=== PATIENT | male | born 1930 | race Caucasian/White ===

== ENCOUNTER 2016-12-25 11:18 | Emergency (ER) | payer MEDICARE, BC ==
[~2016-12-25] VITALS: Ht 172.7 cm; Wt 93.0 kg
[~2016-12-25 11:18] MED LIST: ACET325T53 PO; ALPR0.255 PO; ASCO500T9 PO; ASPI-991 PO; FINA5TAB4 PO; GABA-534 PO; LEVO750T21 PO; LEVO75TA PO; Lactose-Free Food PO; MULT-24 PO; SIMV40TA2 PO
[2016-12-25] MEDS ORDERED: IV NS 0.9% 500 ML IV ONE ×2 (11:28→12:26)
[2016-12-25] MEDS ORDERED: IV NS 0.9% 500 ML BAG IV ONE (11:30)
[2016-12-25 11:47] LABS: BASOPHILS # (AUTO) 0.6 /CMM (0.0-0.2); BASOPHILS % (AUTO) 4.9 % (0.0-2.0); DIFF TOTAL % 100 %; EOSINOPHILS # (AUTO) 0.1 /CMM (0.0-0.7); EOSINOPHILS % (AUTO) 0.8 % (0.0-6.0); HEMATOCRIT 44 % (39-51); HEMOGLOBIN 14.3 g/dL (13.5-17.5); LYMPHOCYTES # (AUTO) 1.3 /CMM (0.8-4.8); LYMPHOCYTES % (AUTO) 10.3 % (20.0-44.0); MEAN CORPUSCULAR HEMOGLOBIN 30 PG (26.0-33.0); MEAN CORPUSCULAR HGB CONC 33 g/dl (31.0-36.0); MEAN CORPUSCULAR VOLUME 91 fL (80-96); MONOCYTES # (AUTO) 1.2 /CMM (0.1-1.30); MONOCYTES % (AUTO) 9.8 % (2.0-12.0); NEUTROPHILS % (AUTO) 74.2 % (43.0-81.0); PLATELET COUNT (AUTO) 319 /CMM (150-450); RED BLOOD CELL COUNT(AUTO) 4.79 MIL/uL (4.5-6.0); WHITE BLOOD COUNT (AUTO) 12.2 K/uL (4.3-11.0)
[2016-12-25 11:58] LABS: ANION GAP 14 (5-14); CALCIUM, SERUM 8.8 mg/dL (8.5-10.1); CARBON DIOXIDE 24 mmol/L (21-32); CHLORIDE 103 mmol/L (98-107); CREATININE 1.3 mg/dL (0.6-1.3); GLUCOSE 103 mg/dL (74-106); POTASSIUM 4.1 mmol/L (3.5-5.1); SODIUM SERUM 137 mmol/L (136-145); UREA NITROGEN, BLOOD 23 mg/dL (7-18)
[2016-12-25 12:02] LABS: INR 1.04 (0.87-1.13); PROTHROMBIN TIME 10.9 SECS (9.5-12.7)
[2016-12-25 12:04] LABS: ALANINE AMINOTRANSFERASE 42 U/L (12-78); ALBUMIN 3.1 g/dL (3.4-5.0); ASPARTATE AMINOTRANSFERASE 46 U/L (15-37); BILIRUBIN,DIRECT 0.1 mg/dL (0.0-0.2); BILIRUBIN,TOTAL 0.4 mg/dL (0.2-1.0); TOTAL PROTEIN, SERUM 7.1 g/dL (6.4-8.2)
[2016-12-25 12:05] LABS: INDIRECT BILIRUBIN 0.3 mg/dL (0.0-1.1)
[2016-12-25 12:06] LABS: TROPONIN I < 0.017 ng/mL (0.00-0.056)
[2016-12-25 12:15] LABS: KETONES,URINE Trace (NEGATIVE); LEUKOCYTE ESTERASE ,URINE Large (NEGATIVE); PH,URINE 6.5 (5.0-8.0)
[2016-12-25 12:19] LABS: ADD UA MICROSCOPIC YES
[2016-12-25] MEDS ORDERED: MULT-659 PO (12:20)
[2016-12-25] MEDS ORDERED: RISP0.253 PO ×2 (12:20)
[2016-12-25] MEDS ORDERED: PANT20TA3 PO (12:20)
[2016-12-25] MEDS ORDERED: OXCA300T4 PO (12:20)
[2016-12-25] MEDS ORDERED: DOCU50LI PO (12:20)
[2016-12-25] MEDS ORDERED: NA P133E RC (12:20)
[2016-12-25] MEDS ORDERED: SIMV20TA6 PO (12:20)
[2016-12-25] MEDS ORDERED: AMIN30LI4 PO (12:20)
[2016-12-25] MEDS ORDERED: ONDA4TAB5 PO (12:20)
[2016-12-25] MEDS ORDERED: MAGN400O6 PO (12:20)
[2016-12-25] MEDS ORDERED: AMLO2.5T2 PO (12:20)
[2016-12-25] MEDS ORDERED: METO5TAB87 PO (12:20)
[2016-12-25 12:25] LABS: LACTIC ACID 2.6 mmol/L (0.4-2.0)
[2016-12-25] MEDS ORDERED: IV NS 0.9% 2,000 ML ONE (12:26)
[2016-12-25] MEDS ORDERED: IV SET PRIMARY 1 EA INFUS.SET MC ONE (12:26)
[2016-12-25 12:27] LABS: ADD URINE CULTURE YES; WBC,URINE 81-100 /HPF (0-3)
[2016-12-25] MEDS ORDERED: IV NS 0.9% 1,000 ML BAG IV ONE (12:30)
[2016-12-25 12:45] LABS: *LACTIC ACID REFLEX FLAG YES
[2016-12-25] MEDS ORDERED: MORPHINE SULFATE INJ 4 MG/ML DISP.SYRIN ONE (13:00)
[2016-12-25] MEDS ORDERED: MORPHINE SULFATE INJ 2 MG/ML DISP.SYRIN IV ONE (13:00)
[2016-12-25] MEDS ORDERED: IV SET PRIMARY PUMP SET 1 EA INFUS.SET MC ONE (13:00)
[2016-12-25] MEDS ORDERED: CEFTRIAXONE 1GM BAG (ER ONLY) 50 ML IV ONE ×2 (13:00→13:32)
[2016-12-25] MEDS ORDERED: CEFTRIAXONE 1 G in IV D5W 50 ML IV SCH (13:00)
[2016-12-25] MEDS ORDERED: CEFTRIAXONE 1 G in IV D5W 50 ML IV ONE (13:27)
[2016-12-25 14:24] VITALS: BP 129/75
== END 2016-12-25 14:28 ==
LOC: ER 11:19 → UNDOADMIN 13:09 → TELE 13:09 → ER 14:28
DX: A41.9 Sepsis, unspecified organism (principal); R09.02 Hypoxemia; N39.0 Urinary tract infection, site not specified; F03.90 Unspecified dementia, unspecified severity, without behavioral disturbance, psychotic disturbance, mood disturbance, and anxiety; G30.9 Alzheimer's disease, unspecified; F02.80 Dementia in other diseases classified elsewhere, unspecified severity, without behavioral disturbance, psychotic disturbance, mood disturbance, and anxiety; I10 Essential (primary) hypertension; K21.9 Gastro-esophageal reflux disease without esophagitis; N40.0 Benign prostatic hyperplasia without lower urinary tract symptoms; E03.9 Hypothyroidism, unspecified; Z88.0 Allergy status to penicillin; Z88.2 Allergy status to sulfonamides; Z79.82 Long term (current) use of aspirin
CPT/HCPCS: 36415; 71010; 80048; 80076; 81001; 83605 ×2; 83690; 84484; 85025; 85730; 87040 ×2; 87077; 87086; 87186; 93005; 96361; 96365 ×2; 96375; 99291; A4606; J0696 ×3; J2270; J7030; J7040 ×2; J7060; 81000-TC; Z7610

== ENCOUNTER 2016-12-25 15:47 | Inpatient (IN) | payer MEDICARE, BC ==
[~2016-12-25] VITALS: Ht 172.7 cm; Wt 93.0 kg
[~2016-12-25 15:47] MED LIST changes: +AMIN30LI4 PO; +AMLO2.5T2 PO; +DOCU50LI PO; +MAGN400O6 PO; +METO5TAB87 PO; +MULT-659 PO; +NA P133E RC; +ONDA4TAB5 PO; +OXCA300T4 PO; +PANT20TA3 PO; +RISP0.253 PO; +SIMV20TA6 PO
[2016-12-25 16:15] LABS: BASOPHILS # (AUTO) 0.3 /CMM (0.0-0.2); BASOPHILS % (AUTO) 2.2 % (0.0-2.0); DIFF TOTAL % 100 %; EOSINOPHILS % (AUTO) 0.1 % (0.0-6.0); HEMATOCRIT 47 % (39-51); HEMOGLOBIN 15.6 g/dL (13.5-17.5); LYMPHOCYTES # (AUTO) 0.9 /CMM (0.8-4.8); LYMPHOCYTES % (AUTO) 7.5 % (20.0-44.0); MEAN CORPUSCULAR HEMOGLOBIN 31 PG (26.0-33.0); MEAN CORPUSCULAR HGB CONC 34 g/dl (31.0-36.0); MEAN CORPUSCULAR VOLUME 91 fL (80-96); MONOCYTES # (AUTO) 1.1 /CMM (0.1-1.30); MONOCYTES % (AUTO) 9.4 % (2.0-12.0); NEUTROPHILS # (AUTO) 9.9 /CMM (1.8-8.9); NEUTROPHILS % (AUTO) 80.8 % (43.0-81.0); PLATELET COUNT (AUTO) 320 /CMM (150-450); RED BLOOD CELL COUNT(AUTO) 5.13 MIL/uL (4.5-6.0); WHITE BLOOD COUNT (AUTO) 12.2 K/uL (4.3-11.0)
[2016-12-25 16:35] LABS: INR 1.1 (0.87-1.13); PROTHROMBIN TIME 11.5 SECS (9.5-12.7)
[2016-12-25] MEDS ORDERED: VANCOMYCIN 1 GM in IV D5W 250 ML IV ONE (17:00)
[2016-12-25 17:14] LABS: ALANINE AMINOTRANSFERASE 40 U/L (12-78); ALBUMIN 3.3 g/dL (3.4-5.0); ANION GAP 16 (5-14); ASPARTATE AMINOTRANSFERASE 33 U/L (15-37); BILIRUBIN,DIRECT 0.1 mg/dL (0.0-0.2); BILIRUBIN,TOTAL 0.3 mg/dL (0.2-1.0); CALCIUM, SERUM 8.3 mg/dL (8.5-10.1); CARBON DIOXIDE 23 mmol/L (21-32); CHLORIDE 105 mmol/L (98-107); CREATININE 1.1 mg/dL (0.6-1.3); GLUCOSE 101 mg/dL (74-106); INDIRECT BILIRUBIN 0.2 mg/dL (0.0-1.1); POTASSIUM 3.7 mmol/L (3.5-5.1); SODIUM SERUM 140 mmol/L (136-145); TOTAL PROTEIN, SERUM 7.4 g/dL (6.4-8.2); UREA NITROGEN, BLOOD 22 mg/dL (7-18)
[2016-12-25 17:17] LABS: TROPONIN I < 0.017 ng/mL (0.00-0.056)
[2016-12-25] MEDS ORDERED: IV SET PRIMARY PUMP SET 1 EA INFUS.SET MC ONE ×2 (17:26→20:23)
[2016-12-25] MEDS ORDERED: IV SET PRIMARY 1 EA INFUS.SET MC ONE (17:44)
[2016-12-25] MEDS ORDERED: IV NS 0.9% 1,000 ML ONE (17:44)
[2016-12-25] MEDS ORDERED: IV NS 0.9% 1,000 ML BAG IV ONE (18:00)
[2016-12-25] MEDS ORDERED: ONDANSETRON HCL/PF 4 MG/2 ML VIAL IVP PRN ×2 (18:30→19:00)
[2016-12-25] MEDS ORDERED: MAGNESIUM HYDROXIDE 30 ML UDC PO PRN ×4 (18:30→19:00)
[2016-12-25] MEDS ORDERED: NA PHOS,M-B/NA PHOS,DI-BA 1 EA ENEMA RC PRN ×2 (18:30→19:00)
[2016-12-25] MEDS ORDERED: ZOLPIDEM TARTRATE 5 MG TABLET PO PRN ×2 (18:30→19:00)
[2016-12-25] MEDS ORDERED: Z GUARD REMEDY 2 OZ OINT TP PRN ×2 (18:30→19:00)
[2016-12-25] MEDS ORDERED: ACETAMINOPHEN 325 MG TABLET PO PRN ×2 (18:30→19:00)
[2016-12-25] MEDS ORDERED: HYDROCODONE/APAP 5/325MG 1 EACH TABLET PO PRN ×2 (18:30→19:00)
[2016-12-25] MEDS ORDERED: MAG HYDROX/AL HYDROX/SIMETH 30 ML UDC PO PRN ×2 (18:30→19:00)
[2016-12-25] MEDS ORDERED: IV NS 0.9% 500 ML BAG IV ONE (19:30)
[2016-12-25 20:00] VITALS: BP 148/81
[2016-12-25] MEDS ORDERED: IV NS 0.9% 500 ML IV ONE (20:00)
[2016-12-25] MEDS ORDERED: SECONDARY IV SET 1 EA INFUS.SET MC ONE (20:23)
[2016-12-25] MEDS ORDERED: GABAPENTIN 300 MG CAPSULE PO SCH (21:00)
[2016-12-25] MEDS ORDERED: risperiDONE 0.25 MG TABLET PO SCH (22:00)
[2016-12-25] MEDS ORDERED: SIMVASTATIN 20 MG TABLET PO SCH (22:00)
[2016-12-25] MEDS: SIMVASTATIN 20 MG TABLET PO SCH (22:06)
[2016-12-25] MEDS: CEFTRIAXONE 1 G in IV D5W 50 ML IV SCH (22:06)
[2016-12-25] MEDS: risperiDONE 1 MG TABLET PO SCH (22:07)
[2016-12-25] MEDS: GABAPENTIN 300 MG CAPSULE PO SCH (22:07)
[2016-12-26] VITALS (8 sets, daily range): BP systolic 108–145; BP diastolic 43–73
[2016-12-26] MEDS: GABAPENTIN 300 MG CAPSULE PO SCH ×3 (05:00→20:21)
[2016-12-26] MEDS ORDERED: LEVOTHYROXINE SODIUM 75 MCG TABLET PO SCH (07:30)
[2016-12-26] MEDS ORDERED: AMLODIPINE BESYLATE 2.5 MG TABLET PO SCH (09:00)
[2016-12-26] MEDS ORDERED: ASCORBIC ACID 500 MG TABLET PO SCH (09:00)
[2016-12-26] MEDS ORDERED: risperiDONE 0.25 MG TABLET PO SCH (09:00)
[2016-12-26] MEDS: AMLODIPINE BESYLATE 2.5 MG TABLET PO SCH (09:00)
[2016-12-26] MEDS ORDERED: ASPIRIN EC 81 MG TABLET.DR PO SCH (09:00)
[2016-12-26] MEDS ORDERED: DOCUSATE SODIUM LIQ 100 MG/10 ML UDC PO SCH (09:00)
[2016-12-26 11:27] LABS: BASOPHILS % (AUTO) 0.2 % (0.0-2.0); DIFF TOTAL % 100 %; HEMATOCRIT 40 % (39-51); HEMOGLOBIN 13.6 g/dL (13.5-17.5); LYMPHOCYTES # (AUTO) 0.8 /CMM (0.8-4.8); LYMPHOCYTES % (AUTO) 6.4 % (20.0-44.0); MEAN CORPUSCULAR HEMOGLOBIN 30 PG (26.0-33.0); MEAN CORPUSCULAR HGB CONC 34 g/dl (31.0-36.0); MEAN CORPUSCULAR VOLUME 90 fL (80-96); MONOCYTES # (AUTO) 1.2 /CMM (0.1-1.30); MONOCYTES % (AUTO) 9.1 % (2.0-12.0); NEUTROPHILS # (AUTO) 11.1 /CMM (1.8-8.9); NEUTROPHILS % (AUTO) 84.3 % (43.0-81.0); PLATELET COUNT (AUTO) 309 /CMM (150-450); RED BLOOD CELL COUNT(AUTO) 4.47 MIL/uL (4.5-6.0); WHITE BLOOD COUNT (AUTO) 13.1 K/uL (4.3-11.0)
[2016-12-26] MEDS: OXCARBAZEPINE 150 MG TABLET PO SCH ×3 (11:31→17:02)
[2016-12-26] MEDS: MULTIVITAMINS,THERAPEUTIC 1 UDTAB TABLET PO SCH (11:32)
[2016-12-26] MEDS: PANTOPRAZOLE 40 MG/PACK PACK PO SCH (11:32)
[2016-12-26] MEDS: LEVOTHYROXINE SODIUM 75 MCG TABLET PO SCH (11:32)
[2016-12-26] MEDS: ASPIRIN EC 81 MG TABLET.DR PO SCH (11:32)
[2016-12-26] MEDS: DOCUSATE SODIUM LIQ 100 MG/10 ML UDC PO SCH (11:33)
[2016-12-26] MEDS: risperiDONE 0.25 MG TABLET PO SCH (11:35)
[2016-12-26] MEDS: PROSOURCE / PROSTAT (PYXIS) 30 ML UDC PO SCH (11:35)
[2016-12-26] MEDS: ASCORBIC ACID 500 MG TABLET PO SCH (11:36)
[2016-12-26 11:41] LABS: CALCIUM, SERUM 7.6 mg/dL (8.5-10.1); CREATININE 1.4 mg/dL (0.6-1.3); POTASSIUM 3.6 mmol/L (3.5-5.1)
[2016-12-26 12:50] LABS: PLATELET ESTIMATE ADEQUATE
[2016-12-26] MEDS ORDERED: CEFTRIAXONE 1 G in IV D5W 50 ML IV SCH (18:30)
[2016-12-26] MEDS: CEFTRIAXONE 1 G in IV D5W 50 ML IV SCH (20:20)
[2016-12-26] MEDS: SIMVASTATIN 20 MG TABLET PO SCH (22:09)
[2016-12-26] MEDS: risperiDONE 1 MG TABLET PO SCH (22:09)
[2016-12-27] VITALS (9 sets, daily range): BP systolic 110–133; BP diastolic 52–84
[2016-12-27] MEDS: GABAPENTIN 300 MG CAPSULE PO SCH ×3 (05:00→21:50)
[2016-12-27] MEDS: OXCARBAZEPINE 150 MG TABLET PO SCH ×3 (09:00→17:56)
[2016-12-27] MEDS: DOCUSATE SODIUM LIQ 100 MG/10 ML UDC PO SCH (09:00)
[2016-12-27 10:36] LABS: BASOPHILS % (AUTO) 0.2 % (0.0-2.0); DIFF TOTAL % 100 %; EOSINOPHILS % (AUTO) 0.2 % (0.0-6.0); HEMATOCRIT 38 % (39-51); HEMOGLOBIN 12.9 g/dL (13.5-17.5); LYMPHOCYTES # (AUTO) 1.1 /CMM (0.8-4.8); LYMPHOCYTES % (AUTO) 11.5 % (20.0-44.0); MEAN CORPUSCULAR HEMOGLOBIN 31 PG (26.0-33.0); MEAN CORPUSCULAR HGB CONC 34 g/dl (31.0-36.0); MEAN CORPUSCULAR VOLUME 91 fL (80-96); MONOCYTES # (AUTO) 1.1 /CMM (0.1-1.30); MONOCYTES % (AUTO) 10.9 % (2.0-12.0); NEUTROPHILS # (AUTO) 7.6 /CMM (1.8-8.9); NEUTROPHILS % (AUTO) 77.2 % (43.0-81.0); PLATELET COUNT (AUTO) 243 /CMM (150-450); RED BLOOD CELL COUNT(AUTO) 4.21 MIL/uL (4.5-6.0); WHITE BLOOD COUNT (AUTO) 9.8 K/uL (4.3-11.0)
[2016-12-27 10:50] LABS: CALCIUM, SERUM 7.6 mg/dL (8.5-10.1); CREATININE 1.5 mg/dL (0.6-1.3); POTASSIUM 3.3 mmol/L (3.5-5.1)
[2016-12-27] MEDS: PROSOURCE / PROSTAT (PYXIS) 30 ML UDC PO SCH (15:10)
[2016-12-27] MEDS: ASPIRIN EC 81 MG TABLET.DR PO SCH (15:10)
[2016-12-27] MEDS: PANTOPRAZOLE 40 MG/PACK PACK PO SCH (15:10)
[2016-12-27] MEDS: ASCORBIC ACID 500 MG TABLET PO SCH (15:11)
[2016-12-27] MEDS: risperiDONE 0.25 MG TABLET PO SCH (15:11)
[2016-12-27] MEDS: MULTIVITAMINS,THERAPEUTIC 1 UDTAB TABLET PO SCH (15:11)
[2016-12-27] MEDS: LEVOTHYROXINE SODIUM 75 MCG TABLET PO SCH (15:12)
[2016-12-27] MEDS: AMLODIPINE BESYLATE 2.5 MG TABLET PO SCH (15:13)
[2016-12-27] MEDS ORDERED: POTASSIUM CHLORIDE 20 MEQ TAB.PRT.SR PO ONE ×2 (21:30→21:34)
[2016-12-27] MEDS: SIMVASTATIN 20 MG TABLET PO SCH (21:49)
[2016-12-27] MEDS: CEFTRIAXONE 1 G in IV D5W 50 ML IV SCH (21:49)
[2016-12-27] MEDS: risperiDONE 1 MG TABLET PO SCH (21:50)
[2016-12-27] MEDS ORDERED: IV NS 0.9% 250 ML IV ONE (21:52)
[2016-12-28] VITALS: BP 104/76
[2016-12-28 04:00] VITALS: BP 106/57
[2016-12-28] MEDS: GABAPENTIN 300 MG CAPSULE PO SCH ×2 (05:48→12:28)
[2016-12-28 06:53] LABS: BASOPHILS % (AUTO) 0.2 % (0.0-2.0); DIFF TOTAL % 100 %; EOSINOPHILS # (AUTO) 0.1 /CMM (0.0-0.7); EOSINOPHILS % (AUTO) 1.7 % (0.0-6.0); HEMATOCRIT 36 % (39-51); HEMOGLOBIN 12.1 g/dL (13.5-17.5); LYMPHOCYTES # (AUTO) 1.3 /CMM (0.8-4.8); LYMPHOCYTES % (AUTO) 14.1 % (20.0-44.0); MEAN CORPUSCULAR HEMOGLOBIN 31 PG (26.0-33.0); MEAN CORPUSCULAR HGB CONC 33 g/dl (31.0-36.0); MEAN CORPUSCULAR VOLUME 92 fL (80-96); MONOCYTES # (AUTO) 0.9 /CMM (0.1-1.30); MONOCYTES % (AUTO) 10.5 % (2.0-12.0); NEUTROPHILS # (AUTO) 6.6 /CMM (1.8-8.9); NEUTROPHILS % (AUTO) 73.5 % (43.0-81.0); PLATELET COUNT (AUTO) 242 /CMM (150-450); RED BLOOD CELL COUNT(AUTO) 3.96 MIL/uL (4.5-6.0); WHITE BLOOD COUNT (AUTO) 8.9 K/uL (4.3-11.0)
[2016-12-28 07:04] LABS: CALCIUM, SERUM 7.6 mg/dL (8.5-10.1); CREATININE 1.1 mg/dL (0.6-1.3); POTASSIUM 3.5 mmol/L (3.5-5.1)
[2016-12-28 08:00] VITALS: BP 112/62
[2016-12-28] MEDS: MULTIVITAMINS,THERAPEUTIC 1 UDTAB TABLET PO SCH (08:31)
[2016-12-28] MEDS: DOCUSATE SODIUM LIQ 100 MG/10 ML UDC PO SCH (08:31)
[2016-12-28] MEDS: PROSOURCE / PROSTAT (PYXIS) 30 ML UDC PO SCH (08:31)
[2016-12-28] MEDS: OXCARBAZEPINE 150 MG TABLET PO SCH ×2 (08:31→12:28)
[2016-12-28] MEDS: ASPIRIN EC 81 MG TABLET.DR PO SCH (08:31)
[2016-12-28] MEDS: LEVOTHYROXINE SODIUM 75 MCG TABLET PO SCH (08:31)
[2016-12-28 08:32] VITALS: BP 112/62
[2016-12-28] MEDS: risperiDONE 0.25 MG TABLET PO SCH (08:32)
[2016-12-28] MEDS: AMLODIPINE BESYLATE 2.5 MG TABLET PO SCH (08:32)
[2016-12-28] MEDS: PANTOPRAZOLE 40 MG/PACK PACK PO SCH (08:32)
[2016-12-28] MEDS: ASCORBIC ACID 500 MG TABLET PO SCH (08:36)
== END 2016-12-28 13:45 | DRG 689 ==
LOC: ER 15:48 → TELE 18:57 → MED 12-28 08:29
PROVIDERS: ADMIT Family Medicine; ATTEND Family Medicine
DX: N39.0 Urinary tract infection, site not specified (principal); G93.41 Metabolic encephalopathy; E44.1 Mild protein-calorie malnutrition; I12.9 Hypertensive chronic kidney disease with stage 1 through stage 4 chronic kidney disease, or unspecified chronic kidney disease; N18.9 Chronic kidney disease, unspecified; E03.9 Hypothyroidism, unspecified; E86.9 Volume depletion, unspecified; F02.80 Dementia in other diseases classified elsewhere, unspecified severity, without behavioral disturbance, psychotic disturbance, mood disturbance, and anxiety; K21.9 Gastro-esophageal reflux disease without esophagitis; Z86.73 Personal history of transient ischemic attack (TIA), and cerebral infarction without residual deficits; Z87.891 Personal history of nicotine dependence; G30.9 Alzheimer's disease, unspecified; F29 Unspecified psychosis not due to a substance or known physiological condition; N40.1 Benign prostatic hyperplasia with lower urinary tract symptoms; E88.09 Other disorders of plasma-protein metabolism, not elsewhere classified; F32.9 Major depressive disorder, single episode, unspecified; D63.8 Anemia in other chronic diseases classified elsewhere; Z68.31 Body mass index [BMI] 31.0-31.9, adult; D72.829 Elevated white blood cell count, unspecified
CPT/HCPCS: 36415; 71010-TC; 74000-TC; 80048-TC; 80076-TC; 83605-TC; 84484-TC; 85025-TC; 85730-TC; 87081-TC; 92611-TC; 94799-TC; 97001-TC; A4606; J0696; J3370; J7030; J7040; J7050; J7060; Z7610

== ENCOUNTER 2017-12-24 21:22 | Inpatient (IN) | payer MEDICARE, BC ==
[~2017-12-24] VITALS: Ht 172.7 cm; Wt 78.9 kg
[~2017-12-24 21:22] MED LIST changes: -ALPR0.255 PO; +ASPI-1152 PO; -ASPI-991 PO; -LEVO750T21 PO; -Lactose-Free Food PO; -MULT-24 PO; -SIMV40TA2 PO
--- NOTE | 2017-12-24 21:35 | NUR ---
PT JAYDE FROM [facility], PER EMS PT SENT HERE FOR INCREASED AGITATION, AND AGGRESIVE TOWARDS STAFF NAD NOTED, VSS, RESP EVEN AND UNLABORED, PT PUT ON MONITOR, WAITING FOR MD FREEMAN.
[2017-12-24 22:42] LABS: BASOPHILS % (AUTO) 0.6 % (0.0-2.0); EOSINOPHILS # (AUTO) 0.3 /CMM (0.0-0.7); EOSINOPHILS % (AUTO) 4.2 % (0.0-6.0); HEMATOCRIT 45 % (39-51); HEMOGLOBIN 15.6 g/dL (13.5-17.5); LYMPHOCYTES % (AUTO) 32.8 % (20.0-44.0); MEAN CORPUSCULAR HEMOGLOBIN 31 PG (26.0-33.0); MEAN CORPUSCULAR HGB CONC 34 g/dl (31.0-36.0); MEAN CORPUSCULAR VOLUME 91 fL (80-96); MONOCYTES # (AUTO) 0.7 /CMM (0.1-1.30); MONOCYTES % (AUTO) 10.7 % (2.0-12.0); NEUTROPHILS # (AUTO) 3.2 /CMM (1.8-8.9); NEUTROPHILS % (AUTO) 51.7 % (43.0-81.0); PLATELET COUNT (AUTO) 222 /CMM (150-450); RDW COEFFICIENT OF VARIATION 14.8 (11.5-15.0); WHITE BLOOD COUNT (AUTO) 6.1 K/uL (4.3-11.0)
[2017-12-24 22:53] LABS: CARBON DIOXIDE 26 mmol/L (21-32); CHLORIDE 104 mmol/L (98-107); CREATININE 0.9 mg/dL (0.6-1.3); GLUCOSE 94 mg/dL (74-106); INR 1.03 (0.87-1.13); POTASSIUM 4.6 mmol/L (3.5-5.1); SODIUM SERUM 140 mmol/L (136-145); UREA NITROGEN, BLOOD 22 mg/dL (7-18)
[2017-12-24 22:57] LABS: TROPONIN I < 0.017 ng/mL (0.00-0.056)
[2017-12-24 22:58] LABS: ALANINE AMINOTRANSFERASE 24 U/L (12-78); ALBUMIN 3.4 g/dL (3.4-5.0); ALKALINE PHOSPHATASE 87 U/L (46-116); ASPARTATE AMINOTRANSFERASE 34 U/L (15-37); BILIRUBIN,TOTAL 0.4 mg/dL (0.2-1.0)
[2017-12-24 22:59] LABS: ALCOHOL, BLOOD < 3 mg/dL (0-0); SALICYLATE 1.4 mg/dL (2.8-20.0)
[2017-12-24] MEDS ORDERED: LIDOCAINE 2% JEL UROJET 10 ML MM ONE (23:02)
[2017-12-24 23:18] LABS: THYROID STIMULATING HORMONE 0.876 uIU/mL (0.358-3.74)
--- NOTE | 2017-12-24 23:19 | NUR ---
URINE SENT TO LAB
[2017-12-24 23:42] LABS: APPEARANCE,URINE CLEAR (CLEAR); BILIRUBIN,URINE NEGATIVE (NEGATIVE); BLOOD, URINE NEGATIVE Ery/uL (NEGATIVE); COLOR,URINE YELLOW (YELLOW); KETONES,URINE NEGATIVE (NEGATIVE); LEUKOCYTE ESTERASE ,URINE NEGATIVE (NEGATIVE); NITRITE, URINE NEGATIVE (NEGATIVE); PROTEIN,URINE NEGATIVE (NEGATIVE); UGLUCOSE NEGATIVE (NEGATIVE); UROBILINOGEN,URINE 0.2 EU/dL (0.2)
[2017-12-25] MEDS ORDERED: ONDANSETRON HCL/PF 4 MG/2 ML VIAL IVP PRN
[2017-12-25] MEDS ORDERED: MAG HYDROX/AL HYDROX/SIMETH 30 ML UDC PO PRN
[2017-12-25] MEDS ORDERED: Z GUARD REMEDY 2 OZ OINT TP PRN
[2017-12-25] MEDS ORDERED: HYDROCODONE/APAP 5/325MG 1 EACH TABLET PO PRN
[2017-12-25] MEDS ORDERED: ZOLPIDEM TARTRATE 5 MG TABLET PO PRN
--- NOTE | 2017-12-25 00:10 | NUR ---
MS DIRECTOR OF SPECIAL EDUCATION NOTES RECEIVED PATIENT FROM ER VIA GURNEY, ACCOMPANIED BY STAFF TO ROOM 306-2. A & O X 1 WITH FORGETFULNESS/CONFUSION DUE TO HX DEMENTIA. NO C/O PAIN, NO SOB, @ RA SATTING 95 %, NO ACUTE DISTRESS NOTED. ON REGULAR DIET. ON BEDREST DUE TO WEAKNESS. V/S CHECKED & DOCUMENTED. ON MED SURG. BODY ASSESSMENT DONE, PHOTOS TAKEN & DOCUMENTED. IV ACCESS TO LEFT HAND, INTACT PATENT. NO AGITATION NOTED @ THIS TIME. ALL BELONGINGS ACCOUNTED FOR & DOCUMENTED BY ELECTROLYSIS NEEDLE OPERATOR. ASSISTED WITH ADL CARE. BED ALARM ON & IN LOW LOCKED POSITION. CALL LIGHT WITHIN REACH. WILL CONTINUE TO MONITOR.
[2017-12-25 00:12] VITALS: BP 161/88
[2017-12-25 01:00] VITALS: BP 139/80
[2017-12-25] MEDS: IV D5/0.45 NACL 1,000 ML IV PRN ×2 (01:55→20:44)
--- NOTE | 2017-12-25 03:00 | NUR ---
MS RN NOTE PATIENT NOTED WITH CONFUSION/AGITATION, STAYED WITH THE PATIENT, ANSWERED HIS REPETITIVE QUESTIONS WHICH CALMED HIM DOWN & FELL ASLEEP. IVF RUNNING ORDERED. WILL OBSERVE CLOSELY.
--- NOTE | 2017-12-25 05:00 | NUR ---
MS RN NOTES PATIENT NOTED TO BE SLEEPING COMFORTABLY IN BED. NO ACUTE DISTRESS NOTED. CONTINUING TO MONITOR CLOSELY.
--- NOTE | 2017-12-25 06:36 | NUR ---
MS RN CLOSING NOTES RECEIVED SLEPT WELL FOR FEW HRS. A & O X 1 WITH FORGETFULNESS/CONFUSION DUE TO HX DEMENTIA. NO C/O PAIN, NO SOB, @ RA SATTING 96 %, NO ACUTE DISTRESS NOTED. ON REGULAR DIET. ON BEDREST DUE TO WEAKNESS. V/S WNL. ON MED SURG. IV ACCESS TO LEFT HAND, INTACT PATENT, RUNNING WITH D5 1/2 NS @ 75 ML/HR. NO AGITATION NOTED @ THIS TIME. ALL NEEDS MET. BED ALARM ON & IN LOW LOCKED POSITION. CALL LIGHT WITHIN REACH. WILL ENDORSE TO AM RN FOR CONTINUITY OF CARE.
--- NOTE | 2017-12-25 07:40 | NUR ---
MS RN OPENING NOTES RECEIVED PATIENT IN NO APPARENT DISTRESS. PATIENT IS SLEEPING IN BED. BEDSIDE RAILS ARE UPX2. BED IS LOCKED AND LOWERED. CALL LIGHT IS WITHIN REACH. WILL CONTINUE TO MONITOR.
[2017-12-25 08:00] VITALS: BP 158/76
[2017-12-25] MEDS ORDERED: DOCU100C36 PO (08:07)
[2017-12-25] MEDS ORDERED: ACET-2605 PO (08:07)
[2017-12-25] MEDS ORDERED: CLON0.1T PO (08:07)
[2017-12-25] MEDS ORDERED: ATOR10TA PO (08:07)
[2017-12-25] MEDS ORDERED: BISA10SU8 RC (08:07)
[2017-12-25] MEDS ORDERED: DIVA250T4 PO (08:07)
[2017-12-25] MEDS ORDERED: NA P133E RC (08:07)
[2017-12-25] MEDS ORDERED: LEVO100T9 PO (08:07)
[2017-12-25 08:38] LABS: BASOPHILS % (AUTO) 0.7 % (0.0-2.0); EOSINOPHILS # (AUTO) 0.2 /CMM (0.0-0.7); EOSINOPHILS % (AUTO) 4.8 % (0.0-6.0); HEMATOCRIT 41 % (39-51); HEMOGLOBIN 13.9 g/dL (13.5-17.5); LYMPHOCYTES # (AUTO) 1.7 /CMM (0.8-4.8); LYMPHOCYTES % (AUTO) 33.5 % (20.0-44.0); MEAN CORPUSCULAR HEMOGLOBIN 31 PG (26.0-33.0); MEAN CORPUSCULAR HGB CONC 34 g/dl (31.0-36.0); MEAN CORPUSCULAR VOLUME 91 fL (80-96); MONOCYTES # (AUTO) 0.6 /CMM (0.1-1.30); MONOCYTES % (AUTO) 11.4 % (2.0-12.0); NEUTROPHILS # (AUTO) 2.5 /CMM (1.8-8.9); NEUTROPHILS % (AUTO) 49.6 % (43.0-81.0); PLATELET COUNT (AUTO) 216 /CMM (150-450); RDW COEFFICIENT OF VARIATION 14.8 (11.5-15.0); RED BLOOD CELL COUNT(AUTO) 4.49 MIL/uL (4.5-6.0); WHITE BLOOD COUNT (AUTO) 5.1 K/uL (4.3-11.0)
[2017-12-25 08:42] LABS: ALANINE AMINOTRANSFERASE 17 U/L (12-78); ALBUMIN 2.8 g/dL (3.4-5.0); ALKALINE PHOSPHATASE 74 U/L (46-116); ASPARTATE AMINOTRANSFERASE 20 U/L (15-37); BILIRUBIN,TOTAL 0.3 mg/dL (0.2-1.0); CALCIUM, SERUM 8.5 mg/dL (8.5-10.1); CARBON DIOXIDE 27 mmol/L (21-32); CHLORIDE 107 mmol/L (98-107); CREATININE 0.8 mg/dL (0.6-1.3); GLUCOSE 85 mg/dL (74-106); MAGNESIUM 2.2 mg/dL (1.8-2.4); PHOSPHORUS 3.5 mg/dL (2.5-4.9); POTASSIUM 3.5 mmol/L (3.5-5.1); SODIUM SERUM 142 mmol/L (136-145); TOTAL PROTEIN, SERUM 6.7 g/dL (6.4-8.2); UREA NITROGEN, BLOOD 19 mg/dL (7-18)
[2017-12-25 08:45] LABS: CHOLESTEROL 167 mg/dL (<200); HDL CHOLESTEROL 45 mg/dL (40-60); LDL 103 mg/dL (0-99); TRIGLYCERIDES 142 mg/dL (30-150)
[2017-12-25] MEDS: ENOXAPARIN SODIUM 40 MG/0.4 ML DISP.SYRIN SQ SCH (09:39)
--- NOTE | 2017-12-25 10:24 | NUR ---
INFORMED DR. ALBARO ESPINOZA ABOUT MEDICATION RECONCILIATION.
[2017-12-25 16:00] VITALS: BP 156/80
[2017-12-25] MEDS ORDERED: MISCELLANEOUS MED 1 EA EA PO PRN (16:00)
[2017-12-25] MEDS ORDERED: CLONIDINE HCL 0.1 MG TABLET PO PRN (16:00)
[2017-12-25] MEDS ORDERED: NA PHOS,M-B/NA PHOS,DI-BA 1 EA ENEMA RC PRN (16:00)
[2017-12-25] MEDS ORDERED: ACETAMINOPHEN 325 MG TABLET PO PRN ×2 (16:00)
[2017-12-25] MEDS ORDERED: BISACODYL SUPP (10 MG) 10 MG/SUPP.RECT SUPP.RECT RC PRN (16:00)
[2017-12-25] MEDS ORDERED: MAGNESIUM HYDROXIDE 30 ML UDC PO PRN ×2 (16:00)
[2017-12-25] MEDS: GABAPENTIN 300 MG CAPSULE PO SCH (16:51)
[2017-12-25] MEDS: DIVALPROEX SODIUM 250 MG TABLET.DR PO SCH (16:51)
[2017-12-25] MEDS: DOCUSATE SODIUM 100 MG CAPSULE PO SCH (16:51)
--- NOTE | 2017-12-25 18:49 | NUR ---
MS RN CLOSING NOTES PATIENT IS IN STABLE CONDITION. IN NO APPARENT DISTRESS. BEDSIDE RAILS ARE UP X2. BED IS LOCKED AND LOWERED. CALL LIGHT IS WITHIN REACH. WILL ENDORSE CARE TO HEAVY EQUIPMENT OPERATOR NURSE FOR KATE.
--- NOTE | 2017-12-25 19:00 | NUR ---
MS RN NOTE: RECEIVE IN BED A/OX1. STABLE, NO ACUTE DISTRESS NOTED. BREATHING EVEN AND UNLABORED, NO SOB NOTED. BED LOCKED AND IN LOWEST POSITION, CALL LIGHT IN REACH. WILL CONTINUE TO MONITOR.
[2017-12-25 20:00] VITALS: BP 146/88
[2017-12-25] MEDS: ATORVASTATIN 10 MG TABLET PO SCH (21:06)
[2017-12-25] MEDS: risperiDONE 0.25 MG TABLET PO SCH (21:06)
--- NOTE | 2017-12-26 06:29 | NUR ---
MS RN CLOSING NOTES PT COMFORTABLY ASLEEP AND EASILY AWAKEN, 98% R,A IN STABLE CONDITION. NOT IN FORM OF DISTRESS, RESPIRATION EVEN AND UNLABORED. KEPT CLEAN AND DRY AND COMFORTABLE, ALL NURSING CARE RENDERED. NEEDS ATTENDED AND ANTICIPATED, FREQUENT VISUAL CHECK DONE FOR SAFETY EVERY 2 HOURS. NO COMPLAINS OF PAIN. ASSISTED REPOSITION Q2H,.ON LOW BED AT ALL TIMES TO ENSURE SAFETY. SAFE HAZARD FREE ENVIRONMENT PROVIDED. CALL LIGHT WITHIN EASY TO REACH. WILL ENDORSE NEXT SHIFT CONTINUITY OF CARE
--- NOTE | 2017-12-26 07:05 | NUR ---
RN OPENING NOTES RECEIVED PT. IN BED A&OX2, CONFUSED TO TIME. BREATING UNLABORED, AND EVENLY ON ROOM AIR. NO S/S OF ACUTE DISTRESS. PT. DENIES PAIN. IV FLUIDS RUNNING AT 75 ML/HR. BED IS IN LOWEST AND LOCKED POSITION. 3 SIDE RAILS UP, AND INSTRUCTED PT. TO USE CALL LIGHT WITHIN REACH FOR ASSISTANCE. ALL NEEDS MET. WILL CONTINUE TO ASSESS AND MONITOR.
[2017-12-26 08:00] VITALS: BP 138/81
[2017-12-26] MEDS: ASPIRIN EC 81 MG TABLET.DR PO SCH (09:06)
[2017-12-26] MEDS: risperiDONE 0.25 MG TABLET PO SCH ×2 (09:06→21:04)
[2017-12-26] MEDS: LEVOTHYROXINE SODIUM 100 MCG TABLET PO SCH (09:06)
[2017-12-26] MEDS: DOCUSATE SODIUM 100 MG CAPSULE PO SCH ×2 (09:07→16:55)
[2017-12-26] MEDS: GABAPENTIN 300 MG CAPSULE PO SCH ×3 (09:07→17:00)
[2017-12-26] MEDS: DIVALPROEX SODIUM 250 MG TABLET.DR PO SCH ×3 (09:08→17:00)
[2017-12-26] MEDS: FINASTERIDE (5 MG) 5 MG TABLET PO SCH (09:08)
[2017-12-26] MEDS: AMLODIPINE BESYLATE 5 MG TABLET PO SCH (09:08)
[2017-12-26] MEDS: ENOXAPARIN SODIUM 40 MG/0.4 ML DISP.SYRIN SQ SCH (09:13)
[2017-12-26] MEDS: IV D5/0.45 NACL 1,000 ML IV PRN (15:28)
[2017-12-26 16:00] VITALS: BP 107/77
--- NOTE | 2017-12-26 19:00 | NUR ---
RN CLOSING NOTES PT. IN BED SLEEPING, WAKES UP TO NAME. BREATHING UNLABORED, AND EVENLY ON ROOM AIR. NO S/S OF ACUTE DISTRESS. PT. DENIES PAIN. IV FLUIDS RUNNING AT 75 ML/HR. BED IS IN LOWEST AND LOCKED POSITION. 3 SIDE RAILS UP, AND ICALL LIGHT WITHIN REACH. ALL NEEDS MET. WILL ENDORSE REPORT TO NURSE.
[2017-12-26 20:00] VITALS: BP 111/45
[2017-12-26] MEDS: ATORVASTATIN 10 MG TABLET PO SCH (21:04)
--- NOTE | 2017-12-27 06:41 | NUR ---
MS RN NOTES AWAKE & RESPONSIVE. NOT IN ANY DISTRESS. NO SOB NOTED. DENIES ANY PAIN OR DISCOMFORT AT THIS TIME. WITH IV-HL PATENT & INTACT. AM CARE DONE. MONITORED ACCORDINGLY. CALL LIGHT WITHIN REACH. BED IN LOWEST POSITION. SR UP X 2 FOR SAFETY. WILL ENDORSE TO NEXT SHIFT.
[2017-12-27 08:00] VITALS: BP 125/80
[2017-12-27] MEDS: ASPIRIN EC 81 MG TABLET.DR PO SCH (08:58)
[2017-12-27] MEDS: DIVALPROEX SODIUM 250 MG TABLET.DR PO SCH ×3 (08:58→17:03)
[2017-12-27] MEDS: GABAPENTIN 300 MG CAPSULE PO SCH ×3 (08:58→17:03)
[2017-12-27] MEDS: FINASTERIDE (5 MG) 5 MG TABLET PO SCH (08:58)
[2017-12-27] MEDS: DOCUSATE SODIUM 100 MG CAPSULE PO SCH ×2 (08:59→17:03)
[2017-12-27] MEDS: AMLODIPINE BESYLATE 5 MG TABLET PO SCH (08:59)
[2017-12-27] MEDS: risperiDONE 0.25 MG TABLET PO SCH (09:00)
[2017-12-27] MEDS: LEVOTHYROXINE SODIUM 100 MCG TABLET PO SCH (09:01)
[2017-12-27] MEDS: ENOXAPARIN SODIUM 40 MG/0.4 ML DISP.SYRIN SQ SCH (09:04)
--- NOTE | 2017-12-27 09:12 | NUR ---
MS RN NOTES PATIENT IN BED, AWAKE . A/O X2 TOLERATING ROOM AIR, SATING 99% ON RA, NO SOB. IVC IN LEFT HAND G 18 PATENT AND INTACT, FLUSHES WELL. DENIES ANY DISCOMFORT, RE ORIENT. CALL LIGHT WITHIN REACH. WILL CONT TO MONITOR.
[2017-12-27 12:00] VITALS: BP 125/80
--- NOTE | 2017-12-27 12:42 | NUR ---
PATIENT TO BE DISCHARGED TODAY ORDERED.
[2017-12-27 16:00] VITALS: BP 124/81
--- NOTE | 2017-12-27 18:36 | NUR ---
MS RN DISCHARGED PATIENT HAS BEEN CLEARED FOR DISCHARGE BY MD. VS REMAINS STABLE, PATIENT IS A/O X1-2. HAD BOWEL MOVEMENT TODAY, LARGE AMT. BROWN AND SOFT. IVC IN LEFT HAND REMOVED, GAUZE APPLIED, NO BLEEDING NOTED. BELONGINGS CHECKED AND SEND WITH THE PATIENT UPON DC. CALLED [facility], SPOKE TO MI FRIED FOR REPORT. PATIENT LEFT HOSP IN STABLE CONDITION VIA AMBULANCE. NOTIFIED FAMILY SPOKE TO TREVOR, DAUGHTER.
== END 2017-12-27 18:24 | DRG 640 ==
LOC: ER 21:23 → MED 23:59
PROVIDERS: ADMIT Internal Medicine; ATTEND Internal Medicine
DX: E86.0 Dehydration (principal); G93.40 Encephalopathy, unspecified; D64.9 Anemia, unspecified; G30.9 Alzheimer's disease, unspecified; F02.80 Dementia in other diseases classified elsewhere, unspecified severity, without behavioral disturbance, psychotic disturbance, mood disturbance, and anxiety; R62.7 Adult failure to thrive; E03.9 Hypothyroidism, unspecified; E78.5 Hyperlipidemia, unspecified; F29 Unspecified psychosis not due to a substance or known physiological condition; F32.9 Major depressive disorder, single episode, unspecified; K21.9 Gastro-esophageal reflux disease without esophagitis; N40.0 Benign prostatic hyperplasia without lower urinary tract symptoms; Z87.891 Personal history of nicotine dependence; Z86.73 Personal history of transient ischemic attack (TIA), and cerebral infarction without residual deficits; Z79.899 Other long term (current) drug therapy; Z79.82 Long term (current) use of aspirin; Z88.0 Allergy status to penicillin; Z88.2 Allergy status to sulfonamides; I12.9 Hypertensive chronic kidney disease with stage 1 through stage 4 chronic kidney disease, or unspecified chronic kidney disease; N18.9 Chronic kidney disease, unspecified
CPT/HCPCS: 36415; 70450-TC; 71045-TC; 80048-TC; 80053-TC; 80061-TC; 80076-TC; 80305; 81000-TC; 83735-TC; 84100-TC; 84134-TC; 84443-TC; 84484-TC; 85025-TC; 85730-TC; 87081-TC; 94799-TC; G0480; J1650; J3490

== ENCOUNTER 2018-12-18 12:34 | Inpatient (IN) | payer MEDICARE, BC, MEDICAID ==
[~2018-12-18] VITALS: Ht 182.9 cm; Wt 90.3 kg
[~2018-12-18 12:34] MED LIST changes: +ACET-868 PO; -AMLO2.5T2 PO; +APIX5TAB PO; -ASCO500T9 PO; +ATOR10TA PO; +BISA10SU8 RC; +CLON0.1T PO; +DIVA125C2 PO; +DOCU100C36 PO; -DOCU50LI PO; +LEVO100T9 PO; +LEVO500T75 PO; -LEVO75TA PO; -METO5TAB87 PO; +OMEG1CAP PO; -ONDA4TAB5 PO; -OXCA300T4 PO; -PANT20TA3 PO; +POLY15DR40 EACHEYE; -SIMV20TA6 PO; +VIT1CAPS44 PO; +ZINC220C8 PO
--- NOTE | 2018-12-18 12:48 | NUR ---
BIB RA 86 due to low bp 59 systolic given low dose epi and NS fluid , DNR. pt came from [facility]. PT IS AOX1, VSS, RR EVEN AND UNLABORED. NO ACUTE DISTRESS NOTED. SKIN WARM, DRY, INTACT. PT IS INCONTINENT OF URINE/STOOL. READY FOR EVAL.
[2018-12-18] MEDS ORDERED: IV NS 0.9% 1,000 ML BAG IV ONE ×2 (13:00→14:00)
[2018-12-18 13:02] LABS: BASOPHILS # (AUTO) 0.1 /CMM (0.0-0.2); BASOPHILS % (AUTO) 0.8 % (0.0-2.0); EOSINOPHILS % (AUTO) 2.8 % (0.0-6.0); HEMATOCRIT 36 % (39-51); HEMOGLOBIN 11.9 g/dL (13.5-17.5); LYMPHOCYTES # (AUTO) 2.4 /CMM (0.8-4.8); LYMPHOCYTES % (AUTO) 32.3 % (20.0-44.0); MEAN CORPUSCULAR HGB CONC 33 g/dl (31.0-36.0); MEAN CORPUSCULAR VOLUME 94 fL (80-96); MONOCYTES # (AUTO) 1.2 /CMM (0.1-1.30); MONOCYTES % (AUTO) 16.4 % (2.0-12.0); NEUTROPHILS # (AUTO) 3.5 /CMM (1.8-8.9); NEUTROPHILS % (AUTO) 47.7 % (43.0-81.0); PLATELET COUNT (AUTO) 264 /CMM (150-450); WHITE BLOOD COUNT (AUTO) 7.4 K/uL (4.3-11.0)
[2018-12-18] MEDS ORDERED: ASCO500T9 PO (13:16)
[2018-12-18 13:29] LABS: ALANINE AMINOTRANSFERASE 21 U/L (12-78); ALBUMIN 2.9 g/dL (3.4-5.0); ALKALINE PHOSPHATASE 86 U/L (46-116); ASPARTATE AMINOTRANSFERASE 24 U/L (15-37); B-TYPE NATRIURETIC PEPTIDE 558 PG/ML (0-125); BILIRUBIN,DIRECT 0.1 mg/dL (0.0-0.2); BILIRUBIN,TOTAL 0.2 mg/dL (0.2-1.0); CALCIUM, SERUM 8.5 mg/dL (8.5-10.1); CARBON DIOXIDE 29 mmol/L (21-32); CHLORIDE 107 mmol/L (98-107); CREATININE 1.3 mg/dL (0.6-1.3); GLUCOSE 76 mg/dL (74-106); POTASSIUM 3.4 mmol/L (3.5-5.1); SODIUM SERUM 142 mmol/L (136-145); TOTAL PROTEIN, SERUM 6.9 g/dL (6.4-8.2); UREA NITROGEN, BLOOD 21 mg/dL (7-18)
[2018-12-18 13:44] LABS: EOSINOPHILS % (MANUAL) 4 % (0-4); LYMPHOCYTES % (MANUAL) 34 % (16-48); MONOCYTES % (MANUAL) 16 % (0-11.0); NEUTROPHILS % (MANUAL) 46 (42-76)
[2018-12-18] MEDS ORDERED: VANCOMYCIN 1 GM VIAL ONE (13:54)
[2018-12-18] MEDS ORDERED: LEVOFLOXACIN 750 MG /D5W 150ML 150 ML IV ONE (13:54)
[2018-12-18] MEDS ORDERED: VANCOMYCIN 1 GM in IV D5W 250 ML IV ONE (14:00)
[2018-12-18] MEDS ORDERED: LEVOFLOXACIN 750 MG /D5W 150ML PIGGYBACK IV ONE (14:00)
--- NOTE | 2018-12-18 14:14 | NUR ---
PAGED [facility] FOR PANEL - CHANGER FIXER WOOD CRAFTSMAN DESHAUN CORTEZ
--- NOTE | 2018-12-18 14:28 | NUR ---
URINE COLLECTED VIA STRAIGHT CATH AND SENT TO STAT LAB
--- NOTE | 2018-12-18 14:28 | NUR ---
Patient is resting comfortably in bed with eyes closed. Easily aroused. VSS
--- NOTE | 2018-12-18 14:31 | NUR ---
CALLED NURSE SUP FOR TELE BED
[2018-12-18 15:10] LABS: APPEARANCE,URINE Cloudy (CLEAR); BILIRUBIN,URINE Negative (NEGATIVE); BLOOD, URINE Moderate Ery/uL (NEGATIVE); COLOR,URINE Yellow (YELLOW); KETONES,URINE Negative (NEGATIVE); LEUKOCYTE ESTERASE ,URINE Large (NEGATIVE); NITRITE, URINE Negative (NEGATIVE); PROTEIN,URINE Negative (NEGATIVE); UGLUCOSE Negative (NEGATIVE); UROBILINOGEN,URINE 0.2 EU/dL (0.2)
[2018-12-18 15:23] LABS: BACTERIA,URINE 3+ /HPF (None Seen); SQUAMOUS EPITHELIAL CELL,UR Few /HPF (None Seen); WBC,URINE TOO NUMEROUS TO COUN /HPF (0-3)
[2018-12-18] MEDS ORDERED: HYDROMORPHONE 1 MG/1 ML DISP.SYRIN IV PRN (15:30)
[2018-12-18] MEDS ORDERED: MAGNESIUM HYDROXIDE 30 ML UDC PO PRN ×2 (15:30)
[2018-12-18] MEDS ORDERED: Z GUARD REMEDY 2 OZ OINT TP PRN (15:30)
[2018-12-18] MEDS ORDERED: ONDANSETRON HCL/PF 4 MG/2 ML VIAL IVP PRN (15:30)
[2018-12-18] MEDS ORDERED: MAG HYDROX/AL HYDROX/SIMETH 30 ML UDC PO PRN (15:30)
[2018-12-18] MEDS ORDERED: ACETAMINOPHEN 325 MG TABLET PO PRN ×2 (15:30)
[2018-12-18] MEDS ORDERED: BISACODYL SUPP (10 MG) 10 MG/SUPP.RECT SUPP.RECT RC PRN (15:30)
[2018-12-18] MEDS ORDERED: ZOLPIDEM TARTRATE 5 MG TABLET PO PRN (15:30)
[2018-12-18] MEDS ORDERED: HYDROCODONE/APAP 5/325MG 1 EACH TABLET PO PRN (15:30)
[2018-12-18] MEDS ORDERED: FEE PK DOSING 1 MIN EA MC ONE (16:17)
--- NOTE | 2018-12-18 16:31 | NUR ---
REPORT GIVEN TO MI MENDEZ FOR 310-1 T
--- NOTE | 2018-12-18 17:01 | NUR ---
PT TRANSFERRED TO FLOOR
[2018-12-18] MEDS: DOCUSATE SODIUM 100 MG CAPSULE PO SCH (17:17)
[2018-12-18] MEDS: GABAPENTIN 300 MG CAPSULE PO SCH (17:17)
[2018-12-18] MEDS: DIVALPROEX SODIUM 125 MG CAP.SPRINK PO SCH (17:18)
[2018-12-18 17:56] VITALS: BP 163/93
--- NOTE | 2018-12-18 17:58 | NUR ---
rn adm notes received pt awake via gurney from er, pt is verbally responsive, garbled with some confusion but easily reorients. no acute distress; remains on 2 liters o2 via nc. skin assessed with IM Moran; intact skin except for ble skin dryness. safety ensured. afib on the monitor hr=60. no c/o pain made. oriented to room setup; call light within reach.
[2018-12-18] MEDS: IV NS 0.9% 1,000 ML IV PRN (18:16)
--- NOTE | 2018-12-18 18:18 | NUR ---
rn notes called april to deliver eliquis and eye drops
--- NOTE | 2018-12-18 19:29 | NUR ---
rn closing notes pt awake , nad . endorsed to next shift rn fro continuity of care in stable condition. eliquis and eye drops not received; endorsed to next shift rn to be administered once delivered
--- NOTE | 2018-12-18 19:30 | NUR ---
TELE/RN NOTES RECEIVED PT. LYING IN BED. PT. IS AWAKE, ALERT AND ORIENTED TO SELF. BREATHING EVEN AND UNLABORED ON ROOM AIR. NO SOB, RESPIRATORY DISTRESS OR COMPLAINTS OF PAIN NOTED AT THIS TIME. PT. WITH EXTERNAL TEXTILE COLORIST DYER PRESENT AND INTACT. CURRENT RHYTHM = AFIB HR 65. PT. WITH LEFT AC 20 GAUGE PERIPHERAL IV PRESENT, PATENT AND INTACT ADMINISTERING TO PT. NS @ 75 ML/HR. PER DAYSHIFT NURSE PT. ARTIFICIAL TEARS AND ELIQUIS NOT ADMINISTERED TO PT. BECAUSE MEDICATION WAS UNAVAILABLE, PHARMACY WAS CALLED AND AWAITING FOR ARRIVAL OF MEDICATION. WILL ADMINISTER TO PT. MEDICATION ORDERED. BED LOCKED AND IN LOWEST POSITION, SIDE RAILS UP X3, BED ALARM ON, CALL LIGHT WITHIN REACH, WILL CONTINUE TO MONITOR.
[2018-12-18 20:00] VITALS: BP 192/93
[2018-12-18] MEDS: APIXABAN 5 MG TABLET PO SCH (21:10)
[2018-12-18] MEDS: POLYVINYL ALCOHOL 15 ML BOTTLE EACHEYE SCH (21:10)
[2018-12-18] MEDS: risperiDONE 0.25 MG TABLET PO SCH (21:10)
[2018-12-18] MEDS: ATORVASTATIN 10 MG TABLET PO SCH (21:11)
[2018-12-18] MEDS: CLONIDINE HCL 0.1 MG TABLET PO PRN (21:11)
[2018-12-19] VITALS (7 sets, daily range): BP systolic 126–176; BP diastolic 80–88
[2018-12-19 06:25] LABS: BASOPHILS % (AUTO) 0.9 % (0.0-2.0); EOSINOPHILS % (AUTO) 3.7 % (0.0-6.0); HEMATOCRIT 34 % (39-51); HEMOGLOBIN 11.3 g/dL (13.5-17.5); LYMPHOCYTES # (AUTO) 1.1 /CMM (0.8-4.8); LYMPHOCYTES % (AUTO) 19.3 % (20.0-44.0); MEAN CORPUSCULAR HGB CONC 33 g/dl (31.0-36.0); MEAN CORPUSCULAR VOLUME 94 fL (80-96); MONOCYTES # (AUTO) 0.7 /CMM (0.1-1.30); MONOCYTES % (AUTO) 13.3 % (2.0-12.0); NEUTROPHILS # (AUTO) 3.4 /CMM (1.8-8.9); NEUTROPHILS % (AUTO) 62.8 % (43.0-81.0); PLATELET COUNT (AUTO) 217 /CMM (150-450); RED BLOOD CELL COUNT(AUTO) 3.62 MIL/uL (4.5-6.0); WHITE BLOOD COUNT (AUTO) 5.5 K/uL (4.3-11.0)
--- NOTE | 2018-12-19 06:31 | NUR ---
TELE/RN NOTES PT. IS LYING IN BED RESTING. BREATHING EVEN AND UNLABORED ON ROOM AIR. NO SOB, RESPIRATORY DISTRESS OR COMPLAINTS OF PAIN NOTED AT THIS TIME. PT. WITH EXTERNAL TIN ASSORTER PRESENT AND INTACT. CURRENT RHYTHM = AFIB HR 62 WITH BBB. PT. WITH LEFT AC 20 GAUGE PERIPHERAL IV PRESENT, PATENT AND INTACT ADMINISTERING TO PT. NS @ 75 ML/HR. ALL PT. NEEDS MET. PT. OFFLOADED, TURNED AND REPOSITIONED Q2H AND NEEDED. BED LOCKED AND IN LOWEST POSITION, SIDE RAILS UP X3, BED ALARM ON, CALL LIGHT WITHIN REACH, WILL ENDORSE TO DAYSHIFT NURSE FOR CONTINUITY OF CARE.
[2018-12-19 06:44] LABS: ALANINE AMINOTRANSFERASE 19 U/L (12-78); ALBUMIN 2.5 g/dL (3.4-5.0); ALKALINE PHOSPHATASE 72 U/L (46-116); ASPARTATE AMINOTRANSFERASE 27 U/L (15-37); BILIRUBIN,TOTAL 0.3 mg/dL (0.2-1.0); CALCIUM, SERUM 7.8 mg/dL (8.5-10.1); CARBON DIOXIDE 27 mmol/L (21-32); CHLORIDE 110 mmol/L (98-107); GLUCOSE 77 mg/dL (74-106); PHOSPHORUS 3.1 mg/dL (2.5-4.9); POTASSIUM 3.9 mmol/L (3.5-5.1); SODIUM SERUM 142 mmol/L (136-145); UREA NITROGEN, BLOOD 17 mg/dL (7-18)
[2018-12-19 06:47] LABS: CHOLESTEROL 161 mg/dL (<200); HDL CHOLESTEROL 39 mg/dL (40-60); LDL 91 mg/dL (0-99); THYROID STIMULATING HORMONE 2.791 uIU/mL (0.358-3.74); TRIGLYCERIDES 181 mg/dL (30-150)
[2018-12-19] MEDS: IV NS 0.9% 1,000 ML IV PRN ×2 (06:52→22:07)
--- NOTE | 2018-12-19 07:20 | NUR ---
RN OPENING NOTES PATIENT RESTING IN BED. A/OX1, CONFUSED. NOT IN ANY FORM OF DISTRESS. NO SOB. NO COMPLAINTS OF PAIN AT THIS TIME. ON TELEMONITORING, AFIB HR 62 WITH BBB. IV ACCESS ON LEFT AC 20 GAUGE, PATENT AND INTACT, INFUSING NS @ 75 ML/HR. KEPT PATIENT SAFE AND COMFORTABLE. BED IN LOW/LOCKED POSITION, SIDERAILS UPX2, CALL LIGHT IN REACH, BED ALARM ON. SEMIFOWLERS. WILL MONITOR ACCORDINGLY.
[2018-12-19] MEDS ORDERED: VANCOMYCIN 1 GM in IV D5W 250 ML IV SCH (08:00)
[2018-12-19] MEDS: ASCORBIC ACID 500 MG TABLET PO SCH (08:45)
[2018-12-19] MEDS: DIVALPROEX SODIUM 125 MG CAP.SPRINK PO SCH ×3 (08:46→17:36)
[2018-12-19] MEDS: ACETAMINOPHEN 325 MG TABLET PO SCH (08:47)
[2018-12-19] MEDS: GABAPENTIN 300 MG CAPSULE PO SCH ×3 (08:48→17:29)
[2018-12-19] MEDS: DOCUSATE SODIUM 100 MG CAPSULE PO SCH ×2 (08:49→17:38)
[2018-12-19] MEDS: FINASTERIDE (5 MG) 5 MG TABLET PO SCH (08:49)
[2018-12-19] MEDS: MULTIVIT W/MINERALS 1 TAB TABLET PO SCH (08:49)
[2018-12-19] MEDS: ASPIRIN EC 81 MG TABLET.DR PO SCH (08:49)
[2018-12-19] MEDS: LEVOTHYROXINE SODIUM 100 MCG TABLET PO SCH (08:49)
[2018-12-19] MEDS: POLYVINYL ALCOHOL 15 ML BOTTLE EACHEYE SCH ×3 (08:50→17:27)
[2018-12-19] MEDS: risperiDONE 0.25 MG TABLET PO SCH ×2 (08:54→22:07)
[2018-12-19] MEDS: CLONIDINE HCL 0.1 MG TABLET PO PRN (08:54)
[2018-12-19] MEDS: PANTOPRAZOLE 40 MG VIAL IV SCH (08:55)
[2018-12-19] MEDS ORDERED: PROSTAT (PYXIS) 30 ML UDC PO SCH (09:00)
[2018-12-19] MEDS ORDERED: Medication Not On Formulary EA (Omega-3 Fatty Acids/Fish Oil (Fish Oil 1,000 Mg Capsule) PO SCH (09:00)
[2018-12-19] MEDS: ZINC SULFATE 220 MG CAPSULE PO SCH (09:11)
[2018-12-19] MEDS: APIXABAN 5 MG TABLET PO SCH ×2 (09:28→17:38)
[2018-12-19] MEDS: MULTIVITAMIN/LUTEIN/MINERALS 1 TAB PO SCH (09:28)
[2018-12-19] MEDS: LEVOFLOXACIN 500 MG /D5W 100ML 500 MG in PREMIX 1 EA IV SCH (15:08)
[2018-12-19] MEDS: LACTOBACILLUS RHAMNOSUS GG 1 EACH CAP.SPRINK PO SCH (17:28)
--- NOTE | 2018-12-19 18:54 | NUR ---
RN NOTES: CODE STATUS PATIENT DNR ON POLST BUT NO MD SIGNATURE. TRIED CALLING FAMILY BUT NO ANSWER. NOTIFIED PETER MONREAL. PER [facility] COMMERCIAL FINANCE MANAGER, FULL CODE FOR NOW AND WILL F/U TOMORROW.
--- NOTE | 2018-12-19 19:00 | NUR ---
RN MS OPENING NOTES RECEIVED PATIENT IN BED AWAKE ALERT AND ORIENTED X1, NOTED FORGETFUL AND PERIODS OF CONFUSION. RESPIRATIONS EVEN AND UNLABORED WITH EQUAL RISE AND FALL OF CHEST ON 2 L VIA NC. NO SOB PRESENT, IV SITE TO LEFT AC #20G INTACT AND PATENT, NO REDNESS, NO INFILTRATION PRESENT, IVF RUNNING ORDERED. ORIENTED TO STAFF AND CALL LIGHT AND KEPT WITHIN REACH, SAFETY PRECAUTIONS IN PLACE, LOW BED AND LOCKED, BED ALARM IN PLACE, REPOSITIONED, FLUID OFFERED ALL NEEDS ATTENDED AT THIS TIME, WILL CONTINUE TO MONITOR.
--- NOTE | 2018-12-19 19:20 | NUR ---
RN CLOSING NOTES PATIENT IN STABLE CONDITION. NO SIGNIFICANT CHANGE DURING THE SHIFT. ALL NEEDS ATTENDED AND PROVIDED. ALL DUE MEDICATIONS GIVEN ORDERED. KEPT PATIENT SAFE AND COMFORTABLE. BED IN LOCKED/LOW POSITION, SIDERAILS UP, CALL LIGHT IN REACH. ENDORSED TO NIGHT RN FOR KATE.
[2018-12-19] MEDS: ATORVASTATIN 10 MG TABLET PO SCH (22:07)
--- NOTE | 2018-12-20 00:15 | NUR ---
RN MS NOTES PATIENT REFUSED TO HAVE WOUND PICTURES AND BODY ASSESSMENT DONE, ATTEMPTED X 3. EXPLAINED RISKS AND BENEFITS PATIENT YELLING " NO I DONT WANT IT YOU B...." ALSO PATIENT IS ATTEMPTING TO STRIKE AT STAFF.
--- NOTE | 2018-12-20 06:41 | NUR ---
RN MS CLOSING NOTES PATIENT IN BED AWAKE ALERT AND ORIENTED X1, NOTED FORGETFUL AND PERIODS OF CONFUSION. HOWEVER ABLE TO MAKE SIMPLE NEEDS KNOWN, PATIENT WAS REFUSIVE AND STRIKING AT STAFF DURING PERINEAL CARE. REFUSED X 1 TO BE CHANGED EVEN WHEN ENCOURAGED , PATIENT IS CLEAN AND THIS TIME, PATIENT REFUSED PICTURES RESPIRATIONS EVEN AND UN THROUGHOUT SHIFT,LABORED WITH EQUAL RISE AND FALL OF CHEST ON 2 L VIA NC. NO SOB PRESENT, IV SITE TO LEFT AC #20G INTACT AND PATENT, NO REDNESS, NO INFILTRATION PRESENT, IVF RUNNING ORDERED. CALL LIGHT AND KEPT WITHIN REACH, SAFETY PRECAUTIONS IN PLACE, LOW BED AND LOCKED, BED ALARM IN PLACE, REPOSITIONED, FLUID OFFERED ALL NEEDS ATTENDED AT THIS TIME, WILL CONTINUE TO MONITOR AND ENDORSE TO NEXT SHIFT.
[2018-12-20 07:21] LABS: BASOPHILS # (AUTO) 0.1 /CMM (0.0-0.2); BASOPHILS % (AUTO) 0.9 % (0.0-2.0); EOSINOPHILS % (AUTO) 4.2 % (0.0-6.0); HEMATOCRIT 36 % (39-51); HEMOGLOBIN 11.9 g/dL (13.5-17.5); LYMPHOCYTES # (AUTO) 1.5 /CMM (0.8-4.8); LYMPHOCYTES % (AUTO) 24.5 % (20.0-44.0); MEAN CORPUSCULAR HGB CONC 33 g/dl (31.0-36.0); MEAN CORPUSCULAR VOLUME 94 fL (80-96); MONOCYTES # (AUTO) 0.8 /CMM (0.1-1.30); MONOCYTES % (AUTO) 13.6 % (2.0-12.0); NEUTROPHILS # (AUTO) 3.5 /CMM (1.8-8.9); NEUTROPHILS % (AUTO) 56.8 % (43.0-81.0); PLATELET COUNT (AUTO) 233 /CMM (150-450); RED BLOOD CELL COUNT(AUTO) 3.84 MIL/uL (4.5-6.0); WHITE BLOOD COUNT (AUTO) 6.2 K/uL (4.3-11.0)
[2018-12-20 07:31] LABS: CALCIUM, SERUM 8.2 mg/dL (8.5-10.1); CARBON DIOXIDE 28 mmol/L (21-32); CHLORIDE 109 mmol/L (98-107); CREATININE 1.2 mg/dL (0.6-1.3); GLUCOSE 78 mg/dL (74-106); POTASSIUM 3.9 mmol/L (3.5-5.1); SODIUM SERUM 146 mmol/L (136-145); UREA NITROGEN, BLOOD 16 mg/dL (7-18)
[2018-12-20 08:00] VITALS: BP_SYST 131; BP_SYST 160; BP_DIAS 74; BP_DIAS 92
--- NOTE | 2018-12-20 08:00 | NUR ---
m/s paradi tender: notes noted fading bruise/skin discoloration on right side of face/forehead. photo taken and place in chart. will continue to monitor.
--- NOTE | 2018-12-20 08:00 | NUR ---
m/s vice president client services: notes taylor (acnp) here and informed md re: sodium [id number] and held iv ns at this time, stated, "that's good." will continue to monitor.
--- NOTE | 2018-12-20 08:29 | NUR ---
WOUND CARE CONSULT: PT PRESENTS WITH INCONTINENCE AND DRY SCAB TO ANTERIOR LOWER RT LEG, DRY ABRASION TO LEFT LOWER LEG, DRY SCABS TO DORSAL TOES, FADING BRUISE TO RT FOREHEAD, PRESENT ON ADMISSION. RECOMMENDATIONS MADE FOR SKIN PROTECTION AND CARE. DISCUSSED WITH NURSING STAFF. WILL SEE PRN. ZUNIGA IN AGREEMENT WITH PLAN OF CARE. Addendum: 12/20/18 at 0831 by GENESIS RM WNDNU Amended: Links added.
[2018-12-20] MEDS ORDERED: MINERAL OIL/PETROLATUM,WHITE 120 GM JAR TP PRN (08:30)
[2018-12-20] MEDS: POLYVINYL ALCOHOL 15 ML BOTTLE EACHEYE SCH ×3 (08:41→17:30)
[2018-12-20] MEDS: APIXABAN 5 MG TABLET PO SCH ×2 (08:41→17:30)
[2018-12-20] MEDS: ASPIRIN EC 81 MG TABLET.DR PO SCH (08:42)
[2018-12-20] MEDS: FINASTERIDE (5 MG) 5 MG TABLET PO SCH (08:42)
[2018-12-20] MEDS: GABAPENTIN 300 MG CAPSULE PO SCH ×3 (08:42→17:30)
[2018-12-20] MEDS: LACTOBACILLUS RHAMNOSUS GG 1 EACH CAP.SPRINK PO SCH ×2 (08:42→17:30)
[2018-12-20] MEDS: MULTIVITAMIN/LUTEIN/MINERALS 1 TAB PO SCH (08:42)
[2018-12-20] MEDS: LEVOTHYROXINE SODIUM 100 MCG TABLET PO SCH (08:42)
[2018-12-20] MEDS: risperiDONE 0.25 MG TABLET PO SCH ×2 (08:42→21:07)
[2018-12-20] MEDS: ZINC SULFATE 220 MG CAPSULE PO SCH (08:42)
[2018-12-20] MEDS: ASCORBIC ACID 500 MG TABLET PO SCH (08:42)
[2018-12-20] MEDS: DIVALPROEX SODIUM 125 MG CAP.SPRINK PO SCH ×3 (08:42→17:30)
[2018-12-20] MEDS: DOCUSATE SODIUM 100 MG CAPSULE PO SCH ×2 (08:42→17:30)
[2018-12-20] MEDS: PROSOURCE / PROSTAT (PYXIS) 30 ML UDC PO SCH (08:45)
[2018-12-20] MEDS: ACETAMINOPHEN 325 MG TABLET PO SCH (08:45)
[2018-12-20] MEDS: MULTIVIT W/MINERALS 1 TAB TABLET PO SCH (08:50)
[2018-12-20] MEDS: PANTOPRAZOLE 40 MG VIAL IV SCH (09:43)
--- NOTE | 2018-12-20 12:55 | NUR ---
m/s guest service aide: log processor operator consult seen and examined by dr. SALAS with tx order. order acknowledged.
--- NOTE | 2018-12-20 13:10 | NUR ---
m/s fiscal accounting clerk: notes pt threw his medications at staff. reality orientation provided prn. pt easily get agitated. will continue to monitor.
[2018-12-20] MEDS: LEVOFLOXACIN 500 MG /D5W 100ML 500 MG in PREMIX 1 EA IV SCH (14:55)
--- NOTE | 2018-12-20 15:00 | NUR ---
m/s shift superintendent caustic cresylate: notes incontinent of bowel and bladder rendered by staff, pt with little resistance during care. pt remains confused and disoriented to time, place, and situation. reality orientation provided prn. turned and repositioned. will continue to monitor.
[2018-12-20 16:00] VITALS: BP 156/84
--- NOTE | 2018-12-20 18:15 | NUR ---
m/s immigration law specialist: notes incontinent of bowel and bladder rendered by turf keeper. kept clean and dry. good pericare rendered. needs attended. pt remains confused and disoriented to time, place, and situation. easily gets agitated. reality orientation provided prn. in no apparent distress noted. will continue to monitor.
--- NOTE | 2018-12-20 19:00 | NUR ---
m/s rail car repair carman: notes bedside report given to nishant (rn) for continuity of care.
--- NOTE | 2018-12-20 19:05 | NUR ---
RN MS OPENING NOTES RECEIVED PATIENT IN BED AWAKE ALERT AND ORIENTED X1, NOTED FORGETFUL AND PERIODS OF CONFUSION. RESPIRATIONS EVEN AND UNLABORED WITH EQUAL RISE AND FALL OF CHEST ON 2 L VIA NC. NO SOB PRESENT, IV SITE TO LEFT AC #20G INTACT AND PATENT, NO REDNESS, NO INFILTRATION PRESENT. ORIENTED TO STAFF AND CALL LIGHT AND KEPT WITHIN REACH, SAFETY PRECAUTIONS IN PLACE, LOW BED AND LOCKED, BED ALARM IN PLACE, REPOSITIONED, FLUID OFFERED ALL NEEDS ATTENDED AT THIS TIME, WILL CONTINUE TO MONITOR AND ADDRESS NEEDS.
[2018-12-20 20:00] VITALS: BP 147/76
[2018-12-20] MEDS: ATORVASTATIN 10 MG TABLET PO SCH (21:07)
[2018-12-21 06:31] LABS: CALCIUM, SERUM 8.2 mg/dL (8.5-10.1); CARBON DIOXIDE 27 mmol/L (21-32); CHLORIDE 105 mmol/L (98-107); GLUCOSE 71 mg/dL (74-106); POTASSIUM 3.9 mmol/L (3.5-5.1); SODIUM SERUM 139 mmol/L (136-145); UREA NITROGEN, BLOOD 18 mg/dL (7-18)
[2018-12-21 06:42] LABS: BASOPHILS % (AUTO) 0.6 % (0.0-2.0); EOSINOPHILS % (AUTO) 4.2 % (0.0-6.0); HEMATOCRIT 37 % (39-51); HEMOGLOBIN 12.3 g/dL (13.5-17.5); LYMPHOCYTES % (AUTO) 29.6 % (20.0-44.0); MEAN CORPUSCULAR HGB CONC 33 g/dl (31.0-36.0); MEAN CORPUSCULAR VOLUME 94 fL (80-96); MONOCYTES % (AUTO) 14.7 % (2.0-12.0); NEUTROPHILS # (AUTO) 3.5 /CMM (1.8-8.9); NEUTROPHILS % (AUTO) 50.9 % (43.0-81.0); PLATELET COUNT (AUTO) 192 /CMM (150-450); RED BLOOD CELL COUNT(AUTO) 3.97 MIL/uL (4.5-6.0); WHITE BLOOD COUNT (AUTO) 6.8 K/uL (4.3-11.0)
--- NOTE | 2018-12-21 07:05 | NUR ---
RN MS CLOSING NOTES PATIENT IN BED AWAKE ALERT AND ORIENTED X1, NOTED FORGETFUL AND PERIODS OF CONFUSION AT TIMES REFUSES CARE VERBALLY AGGRESSIVE. RESPIRATIONS EVEN AND UNLABORED WITH EQUAL RISE AND FALL OF CHEST ON 2 L VIA NC. NO SOB PRESENT, IV SITE TO LEFT AC #20G INTACT AND PATENT, NO REDNESS, NO INFILTRATION PRESENT. CALL LIGHT AND KEPT WITHIN REACH, SAFETY PRECAUTIONS IN PLACE, LOW BED AND LOCKED, BED ALARM IN PLACE, REPOSITIONED, FLUID OFFERED ALL NEEDS ATTENDED AT THIS TIME, WILL CONTINUE TO MONITOR AND ADDRESS NEEDS AND ENDORSE TO NEXT SHIFT.
--- NOTE | 2018-12-21 07:40 | NUR ---
MS RN RECEIVED ON BED, AWAKE,ALERT,ORIENTED X1,NOT IN ANY FORM OF DISTRESS, RESPIRATIONS EVEN AND UNLABORED,NO SOB NOTED,LUNGS ARE CLEAR,ABDOMEN SOFT, POSITIVE BOWEL SOUNDS, DENIES PAIN AT THIS TIME, WILL MONITOR PT.
[2018-12-21 08:00] VITALS: BP 163/88
[2018-12-21] MEDS ORDERED: LEVO500T75 PO (08:39)
[2018-12-21] MEDS: PANTOPRAZOLE 40 MG VIAL IV SCH (08:43)
[2018-12-21] MEDS: ASPIRIN EC 81 MG TABLET.DR PO SCH (08:44)
[2018-12-21] MEDS: risperiDONE 0.25 MG TABLET PO SCH (08:45)
[2018-12-21] MEDS: ACETAMINOPHEN 325 MG TABLET PO SCH (08:45)
[2018-12-21] MEDS: GABAPENTIN 300 MG CAPSULE PO SCH ×2 (08:45→13:06)
[2018-12-21] MEDS: DOCUSATE SODIUM 100 MG CAPSULE PO SCH (08:45)
[2018-12-21] MEDS: ASCORBIC ACID 500 MG TABLET PO SCH (08:45)
[2018-12-21] MEDS: ZINC SULFATE 220 MG CAPSULE PO SCH (08:46)
[2018-12-21] MEDS: DIVALPROEX SODIUM 125 MG CAP.SPRINK PO SCH ×2 (08:46→13:05)
[2018-12-21] MEDS: FINASTERIDE (5 MG) 5 MG TABLET PO SCH (08:46)
[2018-12-21] MEDS: LACTOBACILLUS RHAMNOSUS GG 1 EACH CAP.SPRINK PO SCH (08:46)
[2018-12-21] MEDS: LEVOTHYROXINE SODIUM 100 MCG TABLET PO SCH (08:52)
[2018-12-21] MEDS: APIXABAN 5 MG TABLET PO SCH (08:52)
[2018-12-21] MEDS: MULTIVITAMIN/LUTEIN/MINERALS 1 TAB PO SCH (08:52)
[2018-12-21] MEDS: POLYVINYL ALCOHOL 15 ML BOTTLE EACHEYE SCH ×2 (08:53→13:09)
[2018-12-21] MEDS: PROSOURCE / PROSTAT (PYXIS) 30 ML UDC PO SCH (09:00)
--- NOTE | 2018-12-21 09:20 | NUR ---
MS STARK BREAKFAST SERVED,DUE MEDS GIVEN,TOLERATED WELL.
[2018-12-21] MEDS: LEVOFLOXACIN 500 MG /D5W 100ML 500 MG in PREMIX 1 EA IV SCH (13:07)
[2018-12-21] MEDS ORDERED: FEE PK DOSING 1 MIN EA MC ONE (13:49)
[2018-12-21 14:39] VITALS: BP 191/90
[2018-12-21] MEDS: CLONIDINE HCL 0.1 MG TABLET PO PRN (14:39)
[2018-12-21] MEDS ORDERED: TOBRAMYCIN 120 MG in IV D5W 50 ML IV SCH (15:00)
--- NOTE | 2018-12-21 15:30 | NUR ---
MS RN WENT TO SNF, REPORT GIVEN TO LAYLA,NO DISTRESS NOTED.
== END 2018-12-21 16:00 | DRG 871 ==
LOC: ER 12:35 → TELE 15:27 → MED 12-19 09:35
PROVIDERS: ADMIT Nurse Practitioner Acute Care; ATTEND Family Medicine
DX: A41.9 Sepsis, unspecified organism (principal); G93.41 Metabolic encephalopathy; R53.2 Functional quadriplegia; N17.0 Acute kidney failure with tubular necrosis; E46 Unspecified protein-calorie malnutrition; E87.2 Acidosis; N39.0 Urinary tract infection, site not specified; I13.0 Hypertensive heart and chronic kidney disease with heart failure and stage 1 through stage 4 chronic kidney disease, or unspecified chronic kidney disease; I50.30 Unspecified diastolic (congestive) heart failure; E86.0 Dehydration; N18.9 Chronic kidney disease, unspecified; R65.20 Severe sepsis without septic shock; E87.6 Hypokalemia; F02.80 Dementia in other diseases classified elsewhere, unspecified severity, without behavioral disturbance, psychotic disturbance, mood disturbance, and anxiety; G30.9 Alzheimer's disease, unspecified; F32.9 Major depressive disorder, single episode, unspecified; E03.9 Hypothyroidism, unspecified; N40.0 Benign prostatic hyperplasia without lower urinary tract symptoms; I25.10 Atherosclerotic heart disease of native coronary artery without angina pectoris; E66.9 Obesity, unspecified; Z68.27 Body mass index [BMI] 27.0-27.9, adult; L89.621 Pressure ulcer of left heel, stage 1; L89.611 Pressure ulcer of right heel, stage 1; E78.5 Hyperlipidemia, unspecified; I87.2 Venous insufficiency (chronic) (peripheral); J44.9 Chronic obstructive pulmonary disease, unspecified; Z79.82 Long term (current) use of aspirin; Z79.01 Long term (current) use of anticoagulants; Z86.73 Personal history of transient ischemic attack (TIA), and cerebral infarction without residual deficits; Z87.891 Personal history of nicotine dependence; B96.4 Proteus (mirabilis) (morganii) as the cause of diseases classified elsewhere; Z16.24 Resistance to multiple antibiotics
CPT/HCPCS: 36415; 71045-TC; 80048-TC; 80053-TC; 80061-TC; 80076-TC; 80202-TC; 81000-TC; 83605-TC; 83735-TC; 83880; 84100-TC; 84443-TC; 84484-TC; 85025-TC; 85730-TC; 87040-TC; 87081-TC; 87086-TC; 87186-TC; 87400; 92521; 92526; A4216; C9113; G0378; J1956; J3260; J3370; J7030; J7040; J7060

== ENCOUNTER 2019-11-16 10:27 | Inpatient (IN) | payer MEDICARE, BC, MEDICAID ==
[~2019-11-16] VITALS: Ht 182.9 cm; Wt 88.0 kg
[~2019-11-16 10:27] MED LIST changes: +ASCO500T9 PO; +BISA10SU11 RC; -BISA10SU8 RC; +ZINC1CAP2 PO; -ZINC220C8 PO
--- NOTE | 2019-11-16 10:32 | NUR ---
PT BIBRA C/O BRADYCARDIA. HR UPON ARRIVAL IS 44. HX OF BRADYCARDIA PER EMS. PT ALERT AND AWAKE, BREATHING EVEN AND UNLABORED ON ROOM AIR W/ NAD NOTED. PT CONNECTED TO THE ARMATURE BANDER AND POX
--- NOTE | 2019-11-16 10:33 | NUR ---
EKG AT BEDSIDE
[2019-11-16] MEDS ORDERED: CALC-7 PO (11:02)
[2019-11-16] MEDS ORDERED: MELA5TAB PO (11:02)
[2019-11-16] MEDS ORDERED: ALBU2.5V38 IH (11:02)
[2019-11-16] MEDS ORDERED: TRAZ-182 PO (11:03)
[2019-11-16] MEDS ORDERED: AMLO2.5T4 PO (11:03)
--- NOTE | 2019-11-16 11:03 | NUR ---
URINE COLLECTED AND SENT TO LAB
--- NOTE | 2019-11-16 11:03 | NUR ---
SEO COORDINATOR AT BEDSIDE FOR BLOOD DRAW
[2019-11-16 11:18] LABS: APPEARANCE,URINE Clear (CLEAR); BILIRUBIN,URINE Negative (NEGATIVE); BLOOD, URINE Negative Ery/uL (NEGATIVE); COLOR,URINE Yellow (YELLOW); KETONES,URINE Negative (NEGATIVE); LEUKOCYTE ESTERASE ,URINE Negative (NEGATIVE); NITRITE, URINE Negative (NEGATIVE); PROTEIN,URINE Negative (NEGATIVE); UGLUCOSE Negative (NEGATIVE); UROBILINOGEN,URINE 0.2 EU/dL (0.2)
[2019-11-16 11:22] LABS: BASOPHILS % (AUTO) 0.5 % (0.0-2.0); EOSINOPHILS % (AUTO) 1.7 % (0.0-6.0); HEMATOCRIT 31 % (39-51); HEMOGLOBIN 10.1 g/dL (13.5-17.5); LYMPHOCYTES # (AUTO) 1.2 /CMM (0.8-4.8); LYMPHOCYTES % (AUTO) 16.3 % (20.0-44.0); MEAN CORPUSCULAR HGB CONC 33 g/dl (31.0-36.0); MEAN CORPUSCULAR VOLUME 89 fL (80-96); MONOCYTES # (AUTO) 0.8 /CMM (0.1-1.30); MONOCYTES % (AUTO) 10.5 % (2.0-12.0); NEUTROPHILS # (AUTO) 5.1 /CMM (1.8-8.9); PLATELET COUNT (AUTO) 67 /CMM (150-450); RED BLOOD CELL COUNT(AUTO) 3.45 MIL/uL (4.5-6.0); WHITE BLOOD COUNT (AUTO) 7.2 K/uL (4.3-11.0)
[2019-11-16 11:37] LABS: CALCIUM, SERUM 8.9 mg/dL (8.5-10.1); CARBON DIOXIDE 29 mmol/L (21-32); CHLORIDE 98 mmol/L (98-107); GLUCOSE 73 mg/dL (74-106); POTASSIUM 4.5 mmol/L (3.5-5.1); SODIUM SERUM 128 mmol/L (136-145); UREA NITROGEN, BLOOD 37 mg/dL (7-18)
[2019-11-16 11:42] LABS: ALANINE AMINOTRANSFERASE 50 U/L (12-78); ALBUMIN 2.8 g/dL (3.4-5.0); ALCOHOL, BLOOD < 3 mg/dL (0-0); ALKALINE PHOSPHATASE 90 U/L (46-116); ASPARTATE AMINOTRANSFERASE 40 U/L (15-37); BILIRUBIN,DIRECT 0.1 mg/dL (0.0-0.2); BILIRUBIN,TOTAL 0.3 mg/dL (0.2-1.0); TOTAL PROTEIN, SERUM 6.9 g/dL (6.4-8.2)
[2019-11-16 12:05] LABS: SERUM AMMONIA 24 umol/L (11-32); THYROID STIMULATING HORMONE 0.422 uIU/mL (0.358-3.74)
[2019-11-16 12:49] LABS: BAND % (MANUAL) 1 % (0.0-5.0); LYMPHOCYTES % (MANUAL) 18 % (16-48); MONOCYTES % (MANUAL) 11 % (0-11.0); NEUTROPHILS % (MANUAL) 70 (42-76)
--- NOTE | 2019-11-16 13:46 | NUR ---
CALLED [facility], PAGED VY
--- NOTE | 2019-11-16 13:56 | NUR ---
CALLED NURSING SUP FOR BED
--- NOTE | 2019-11-16 14:29 | NUR ---
report given to oksana fermin for des pt transported to 3rd floor
[2019-11-16 14:30] VITALS: BP 114/89
[2019-11-16] MEDS ORDERED: NA PHOS,M-B/NA PHOS,DI-BA 1 EA ENEMA RC PRN (14:30)
[2019-11-16] MEDS ORDERED: ALBUTEROL FS 2.5 MG/3 ML VIAL.NEB IH PRN (14:30)
[2019-11-16] MEDS ORDERED: ACETAMINOPHEN 325 MG TABLET PO PRN ×2 (14:30)
[2019-11-16] MEDS ORDERED: HYDROCODONE/APAP 5/325MG 1 EACH TABLET PO PRN (14:30)
[2019-11-16] MEDS ORDERED: CLONIDINE HCL 0.1 MG TABLET PO PRN (14:30)
[2019-11-16] MEDS ORDERED: ONDANSETRON HCL/PF 4 MG/2 ML VIAL IVP PRN (14:30)
[2019-11-16] MEDS ORDERED: BISACODYL SUPP (10 MG) 10 MG/SUPP.RECT SUPP.RECT RC PRN (14:30)
[2019-11-16] MEDS ORDERED: Z GUARD REMEDY 2 OZ OINT TP PRN (14:30)
[2019-11-16] MEDS ORDERED: MAGNESIUM HYDROXIDE 30 ML UDC PO PRN ×2 (14:30)
[2019-11-16] MEDS ORDERED: MAG HYDROX/AL HYDROX/SIMETH 30 ML UDC PO PRN (14:30)
[2019-11-16] MEDS: PROSOURCE / PROSTAT (PYXIS) 30 ML UDC PO SCH (15:13)
--- NOTE | 2019-11-16 15:30 | NUR ---
MS BRAKE REPAIRER RAILROAD NOTES RECEIVED PT IN [facility] VIA [facility], PT WAS ON TELEMONITORING WITH SB 45 NOTED. PT AWAKE, A/O X1/ PT ON 2LPM SUPPLEMENTARY OXYGEN, WITH NO ACUTE RESPIRATORY DISTRESS. PT UNABLE TO PROVIDE HISTORY AND ADMISSION INFORMATION DUE TO MENTAL STATE. PIV TO RFA G20, FLUSHED WITH NS, INTACT AND OPERATIONAL. STARTED NS AT 75,L/HR TO RFA, WITH NO INFILTRATION NOTED. RIGHT HAND SWOLLEN PITTING +2. SKIN ASSESSED, BLE ABRASION/SKIN DISCOLORATION/REDNESS WRAPPED WITH KERLIX; MULTIPLE SKIN DISCOLORATION TO BILATERAL FOOT, BRUISE TO RIGHT HAND AND RIGHT ELBOW; INCISION SCARS TO MID ABDOMEN AND BACK OF RIGHT SHOULDER BLADE NOTED; PHOTO TAKEN AND FILED IN THE CHART. ADMISSION ORDERS PLACED BY MD/JHONNY. PT KEPT COMFORTABLE IN BED. CALL LIGHT KEPT WITHIN REACH. BED IN LOWEST, LOCKED POSITION WITH SRX3. WILL CONTINUE PLAN OF CARE.
[2019-11-16 16:00] VITALS: BP 109/42
[2019-11-16] MEDS: APIXABAN 5 MG TABLET PO SCH (17:29)
[2019-11-16] MEDS: DIVALPROEX SODIUM 125 MG CAP.SPRINK PO SCH (17:30)
[2019-11-16] MEDS: DOCUSATE SODIUM 100 MG CAPSULE PO SCH (17:30)
[2019-11-16] MEDS: GABAPENTIN 300 MG CAPSULE PO SCH (17:30)
--- NOTE | 2019-11-16 18:52 | NUR ---
MS RN CLOSING NOTES PT IN BED, INTERMITTENTLY DOZING OFF, EASILY AROUSED BY NAME, A/O X1. PT ON 2LPM SUPPLEMENTARY OXYGEN, WITH NO ACUTE RESPIRATORY DISTRESS. PT DENIES ANY PAIN OR DISCOMFORT. IVF NS AT 75ML/HR TO RFA G20, INTACT AND FLUID INFUSING WELL. RIGHT HAND SWOLLEN PITTING +2 STILL NOTED. PT KEPT COMFORTABLE IN BED. ALL NEEDS AND CARE PROVIDED. TURN AND REPOSITIONING Q2H. CALL LIGHT KEPT WITHIN REACH. BED IN LOWEST, LOCKED POSITION WITH SRX3. WILL ENDORSE TO INCOMING NIGHT NURSE FOR KATE.
--- NOTE | 2019-11-16 19:45 | NUR ---
MS RN NOTES RECEIVED ON BED A/O X1,ALERT TO VERBAL STIMULI,IVF NS AT 75ML/HR RATE INFUSING VIA IV PUMP.NOTED ABRASION ON BLE WITH REDNESS,NOTED MULTIPLE NON MEASURABLE SMALL WOUNDS ON BOTH LOWER EXTREMITIES,NOTED ALSO ALIGHT SWELLING ON RIGHT HAND.FALL PRECAUTION OBSERVED,BED ALARM TRIGGERED.WILL CONTINUE TO MONITOR STATUS
[2019-11-16 20:00] VITALS: BP 140/62
[2019-11-16] MEDS: TRAZODONE 50 MG TABLET PO SCH (21:42)
[2019-11-16] MEDS: risperiDONE 0.25 MG TABLET PO SCH (21:42)
[2019-11-16] MEDS: ATORVASTATIN 10 MG TABLET PO SCH (21:42)
[2019-11-16] MEDS ORDERED: Medication Not On Formulary EA (Melatonin 10 MG) PO SCH (22:00)
--- NOTE | 2019-11-16 22:00 | NUR ---
MS RN NOTES INCONTINENT OF URINE,CLEANED AND KEPT DRY.REPOSITION TO RIGHT SIDE.
--- NOTE | 2019-11-17 02:00 | NUR ---
MS RN NOTES SLEEPING,KEPT WARM AND COMFORTABLE.
[2019-11-17] MEDS: IV NS 0.9% 1,000 ML IV PRN ×2 (03:32→17:49)
--- NOTE | 2019-11-17 04:28 | NUR ---
MS RN NOTES AWAKE,SCREAMING,MEDICATED WITH NORCO 5./325MG,1 TAB PO GIVEN WITH APPLE SAUCE,TAKEN WELL.NEGATIVE FOR ASPIRATION.
--- NOTE | 2019-11-17 06:43 | NUR ---
MS RN NOTES CALM,SLEEPING.PAIN MANAGEMENT EFFECTIVE.NO SOB.IVF IN PROGRESS.IN NO ACUTE DISTRESS.WILL ENDORSE TO DAY NURSE FOR KATE.
[2019-11-17 06:53] LABS: BASOPHILS % (AUTO) 0.3 % (0.0-2.0); EOSINOPHILS % (AUTO) 2.8 % (0.0-6.0); HEMATOCRIT 26 % (39-51); HEMOGLOBIN 8.7 g/dL (13.5-17.5); LYMPHOCYTES # (AUTO) 0.8 /CMM (0.8-4.8); LYMPHOCYTES % (AUTO) 24.1 % (20.0-44.0); MEAN CORPUSCULAR HGB CONC 33 g/dl (31.0-36.0); MEAN CORPUSCULAR VOLUME 89 fL (80-96); MONOCYTES # (AUTO) 0.4 /CMM (0.1-1.30); MONOCYTES % (AUTO) 11.8 % (2.0-12.0); NEUTROPHILS # (AUTO) 2.1 /CMM (1.8-8.9); PLATELET COUNT (AUTO) 55 /CMM (150-450); RED BLOOD CELL COUNT(AUTO) 2.92 MIL/uL (4.5-6.0); WHITE BLOOD COUNT (AUTO) 3.4 K/uL (4.3-11.0)
[2019-11-17 07:27] LABS: BAND % (MANUAL) 2 % (0.0-5.0); EOSINOPHILS % (MANUAL) 4 % (0-4); LYMPHOCYTES % (MANUAL) 25 % (16-48); MONOCYTES % (MANUAL) 14 % (0-11.0); NEUTROPHILS % (MANUAL) 55 (42-76)
[2019-11-17 07:38] LABS: CALCIUM, SERUM 8.5 mg/dL (8.5-10.1); CREATININE 0.9 mg/dL (0.6-1.3); MAGNESIUM 2.3 mg/dL (1.8-2.4); PHOSPHORUS 3.2 mg/dL (2.5-4.9); POTASSIUM 4.6 mmol/L (3.5-5.1)
--- NOTE | 2019-11-17 07:55 | NUR ---
ms rn received on bed, awake,oriented x1,not in any form of distress, respirations even and unlabored, patient has some gurgling sounds on both lungs,denies pain at this itme,all needs attended.
[2019-11-17 08:00] VITALS: BP 145/91
--- NOTE | 2019-11-17 08:10 | NUR ---
ms rn received a critical blood sugar result -42 , rechecked for poc- 75,no s/s of hypoglycemia, texted dr. calvo.
--- NOTE | 2019-11-17 08:20 | NUR ---
ms rn i&c technician feeding patient but vomited 2x, cn aware, ordered speech eval at this time.
--- NOTE | 2019-11-17 09:14 | NUR ---
WOUND CARE CONSULT: PT REFUSED TO TURN FOR FULL SKIN ASSESSMENT AND NOTED TO BE YELLING. WOUNDS NOTED TO BILATERAL LOWER LEGS, PRESENT ON ADMISSION. RECOMMEND DPM CONSULT. DR ROBERTS NOTIFIED OF CONSULT REQUEST. PT TO BE PLACED ON KATHIE ISOFLEX LOW AIRLOSS BED. DEFER TO DPM FOR LOWER EXTREMITIES. RECOMMENDATIONS MADE FOR SKIN PROTECTION. DISCUSSED WITH NURSING STAFF. WILL SEE PRN. ZUNIGA IN AGREEMENT WITH PLAN OF CARE. CURRENT ALESSIA SCORE IS 10. Addendum: 11/17/19 at 916 by GENESIS RM WNDNU Amended: Links added. Addendum: 11/17/19 at 918 by GENESIS RM WNDNU CORRECTION: PT IS ON KATHIE ISOFLEX LOW AIRLOSS BED.
--- NOTE | 2019-11-17 09:20 | NUR ---
ms rn due meds held at this time unless speech therapy will see patient.
--- NOTE | 2019-11-17 09:30 | NUR ---
ms rn texted dr. calvo for xray order.and made aware of 42 blood suagr random result.
[2019-11-17] MEDS: LEVOTHYROXINE SODIUM 100 MCG TABLET PO SCH (11:45)
[2019-11-17] MEDS: FINASTERIDE (5 MG) 5 MG TABLET PO SCH (11:45)
[2019-11-17] MEDS: AMLODIPINE BESYLATE 2.5 MG TABLET PO SCH (11:46)
[2019-11-17] MEDS: DOCUSATE SODIUM 100 MG CAPSULE PO SCH ×2 (11:46→17:47)
[2019-11-17] MEDS: DIVALPROEX SODIUM 125 MG CAP.SPRINK PO SCH ×3 (11:46→17:48)
[2019-11-17] MEDS: ASPIRIN EC 81 MG TABLET.DR PO SCH (11:46)
[2019-11-17] MEDS: risperiDONE 0.25 MG TABLET PO SCH ×2 (11:47→21:00)
[2019-11-17] MEDS: CALCIUM CARB 250MG /VITAMIN D 1 UDTAB PO SCH (11:47)
[2019-11-17] MEDS: GABAPENTIN 300 MG CAPSULE PO SCH ×3 (11:47→17:47)
[2019-11-17] MEDS: MULTIVIT W/MINERALS 1 TAB TABLET PO SCH (11:50)
[2019-11-17] MEDS: PROSOURCE / PROSTAT (PYXIS) 30 ML UDC PO SCH (11:52)
[2019-11-17] MEDS: APIXABAN 5 MG TABLET PO SCH ×2 (12:07→17:50)
[2019-11-17 13:33] LABS: CHOLESTEROL 148 mg/dL (<200); HDL CHOLESTEROL 61 mg/dL (40-60); LDL 63 mg/dL (0-99); TRIGLYCERIDES 98 mg/dL (30-150)
--- NOTE | 2019-11-17 15:00 | NUR ---
ms zander gilbert texted back w/ orders made and carried out.
[2019-11-17 16:00] VITALS: BP 157/81
--- NOTE | 2019-11-17 18:41 | NUR ---
ms rn on bed, no distress noted.
--- NOTE | 2019-11-17 19:22 | NUR ---
MS RN NOTES PATIENT IN BED, ASLEEP, EASILY AROUSED BY NAME. BREATHING EVEN AND UNLABORED ON ROOM AIR. DISPLAYS NO ACUTE RESPIRATORY DISTRESS, NO ACUTE PAIN. IV ORDERED DC. SAFETY PRECAUTIONS IN PLACE. BED IN LOWEST POSITION LOCKED AND CALL LIGHT KEPT WITHIN REACH. WILL CONTINUE TO MONITOR.
[2019-11-17 19:25] LABS: VALPROIC ACID 22 ug/mL (50-100)
[2019-11-17 19:30] VITALS: BP 145/78
--- NOTE | 2019-11-17 19:35 | NUR ---
MS RN NOTES RECEIVED PATIENT WITH HR OF 40'S. PATIENT EASILY AROUSED BY NAME. BREATHING EVEN AND UNLABORED ON NC 2L 96% AND BP IS 145/78. WILL CONTINUE TO MONITOR.
[2019-11-17 20:00] VITALS: BP 145/78
[2019-11-17] MEDS: ATORVASTATIN 10 MG TABLET PO SCH (21:41)
[2019-11-17] MEDS: TRAZODONE 50 MG TABLET PO SCH (22:00)
--- NOTE | 2019-11-17 22:06 | NUR ---
MS RN NOTES PATIENT NOT GIVEN RISPERDAL AND DESYREL. PER NURSING JUDGEMENT PATIENT UNSAFE TO BE ADMINISTERED. PATIENT HR 43. WILL CONTINUE TO MONITOR.
--- NOTE | 2019-11-18 07:48 | NUR ---
MS RN NOTES PATIENT IN BED, AWAKE, EASILY AROUSED BY NAME. BREATHING EVEN AND UNLABORED ON ROOM AIR. DISPLAYS NO ACUTE RESPIRATORY DISTRESS, NO ACUTE PAIN. IV ON LEFT UPPER ARM 20G SALINE LOCK. DR. IRVIN MADE AWARE OF HR 38- LOW 40'S NO INTERVENTIONS ORDERED. SAFETY PRECAUTIONS IN PLACE. BED IN LOWEST POSITION LOCKED AND CALL LIGHT KEPT WITHIN REACH. WILL ENDORSE TO ONCOMING NURSE.
--- NOTE | 2019-11-18 07:50 | NUR ---
MS RN OPENING NOTES PATIENT RESTING IN BED, EASILY AROUND BY NAME AND LIGHT TOUCH. BREATHING EVEN AND UNLABORED, NO SIGNS OF DISTRESS. PREVIOUS IV SITE BANDAGED AND WRAPPED ACCORDINGLY, WILL CONTINUE TO MONITOR SITE. BED IN LOW, LOCKED POSITION WITH UPPER SIDE RAILS UP X2, CALL LIGHT WITHIN REACH. WILL CONTINUE TO MONITOR.
[2019-11-18 08:00] VITALS: BP 125/68
[2019-11-18] MEDS: APIXABAN 5 MG TABLET PO SCH ×2 (09:22→17:04)
[2019-11-18] MEDS: DOCUSATE SODIUM 100 MG CAPSULE PO SCH ×2 (09:23→17:04)
[2019-11-18] MEDS: AMLODIPINE BESYLATE 2.5 MG TABLET PO SCH (09:23)
[2019-11-18] MEDS: ASPIRIN EC 81 MG TABLET.DR PO SCH (09:23)
[2019-11-18] MEDS: DIVALPROEX SODIUM 125 MG CAP.SPRINK PO SCH ×3 (09:23→17:07)
[2019-11-18] MEDS: MULTIVIT W/MINERALS 1 TAB TABLET PO SCH (09:23)
[2019-11-18] MEDS: FINASTERIDE (5 MG) 5 MG TABLET PO SCH (09:24)
[2019-11-18] MEDS: PROSOURCE / PROSTAT (PYXIS) 30 ML UDC PO SCH (09:24)
[2019-11-18] MEDS: risperiDONE 0.25 MG TABLET PO SCH ×2 (09:24→21:57)
[2019-11-18] MEDS: GABAPENTIN 300 MG CAPSULE PO SCH ×3 (09:24→17:04)
[2019-11-18] MEDS: CALCIUM CARB 250MG /VITAMIN D 1 UDTAB PO SCH (09:24)
[2019-11-18] MEDS: LEVOTHYROXINE SODIUM 100 MCG TABLET PO SCH (09:27)
--- NOTE | 2019-11-18 10:01 | NUR ---
WOUND CARE CONSULT: PT TURNED FOR FULL SKIN ASSESSMENT. SKIN IS INTACT TO BACK, SACRAL AREA AND BUTTOCKS. PT IS INCONTINENT. DISCUSSED SKIN PROTECTION WITH NURSING STAFF. WILL SEE PRN. ZUNIGA IN AGREEMENT WITH PLAN OF CARE.
[2019-11-18 16:00] VITALS: BP 116/46
--- NOTE | 2019-11-18 18:50 | NUR ---
MS RN CLOSING NOTES PATIENT RESTING COMFORTABLY IN BED; BED LOW LOCKED POSITION, SEMI-FOWLERS WITH UPPER SIDE RAILS UP X2. CALL LIGHT WITH IN EASY REACH. PATIENT AWAKE AND ORIENTED X1, NO CHANGES IN LOC NOTED, NO ACUTE DISTRESS. BREATHING UNLABORED AND EVEN. PATIENT KEPT DRY. WILL ENDORSE CONTINUITY OF CARE TO NEXT SHIFT.
--- NOTE | 2019-11-18 19:19 | NUR ---
MS RN NOTES PATIENT IN BED, ALERT AND ORIENTED X 1. BREATHING EVEN AND UNLABORED ON NC 2L. DISPLAYS NO ACUTE RESPIRATORY DISTRESS, NO ACUTE PAIN. IV ON LEFT UPPER ARM 20G SALINE LOCK. CLEAN DRY AND INTACT, SHOWS NO SIGNS OF INFILTRATION, NO REDNESS. SAFETY PRECAUTIONS IN PLACE. BED IN LOWEST POSITION LOCKED AND CALL LIGHT KEPT WITHIN REACH. WILL CONTINUE TO MONITOR.
[2019-11-18 19:30] VITALS: BP 110/45
[2019-11-18 20:00] VITALS: BP 110/45
[2019-11-18] MEDS: TRAZODONE 50 MG TABLET PO SCH (22:00)
[2019-11-18] MEDS: ATORVASTATIN 10 MG TABLET PO SCH (23:11)
[2019-11-19] VITALS (31 sets, daily range): BP systolic 52–134; BP diastolic 24–93
--- NOTE | 2019-11-19 07:17 | NUR ---
MS RN NOTES PATIENT IN BED, ALERT AND ORIENTED X 1. BREATHING EVEN AND UNLABORED ON NC 2L. DISPLAYS NO ACUTE RESPIRATORY DISTRESS, NO ACUTE PAIN. IV ON LEFT UPPER ARM 20G SALINE LOCK. CLEAN DRY AND INTACT, SHOWS NO SIGNS OF INFILTRATION, NO REDNESS. SAFETY PRECAUTIONS IN PLACE. BED IN LOWEST POSITION LOCKED AND CALL LIGHT KEPT WITHIN REACH. WILL ENDORSE TO ONCOMING NURSE.
--- NOTE | 2019-11-19 07:33 | NUR ---
MS RN OPENING NOTES PATIENT IN BED RESTING, ALERT AND ORIENTED X1; PATIENT ON 2L NC; BREATHING EVEN AND UNLABORED, NO S/S OF ACUTE RESPIRATORY DISTRESS NOTED; NO ACUTE PAIN NOTED; SKIN CLEAN, DRY AND INTACT; SAFETY PRECAUTIONS IN PLACE' BED IN LOWEST POSITION, LOCKED WITH UPPER SIDE RAILS UP X2, CALL LIGHT WITHIN EASY REACH. WILL CONTINUE TO MONITOR.
[2019-11-19] MEDS: DOCUSATE SODIUM LIQ 100 MG/10 ML UDC PO SCH ×2 (08:33→16:56)
[2019-11-19] MEDS: PROSOURCE / PROSTAT (PYXIS) 30 ML UDC PO SCH (08:33)
[2019-11-19] MEDS: CALCIUM CARB 250MG /VITAMIN D 1 UDTAB PO SCH (08:34)
[2019-11-19] MEDS: risperiDONE 0.25 MG TABLET PO SCH (08:34)
[2019-11-19] MEDS: FINASTERIDE (5 MG) 5 MG TABLET PO SCH (08:34)
[2019-11-19] MEDS: ASPIRIN EC 81 MG TABLET.DR PO SCH (08:34)
[2019-11-19] MEDS: DIVALPROEX SODIUM 125 MG CAP.SPRINK PO SCH ×3 (08:34→16:57)
[2019-11-19] MEDS: GABAPENTIN 300 MG CAPSULE PO SCH ×2 (08:34→13:00)
[2019-11-19] MEDS: LEVOTHYROXINE SODIUM 100 MCG TABLET PO SCH (08:35)
[2019-11-19] MEDS: AMLODIPINE BESYLATE 2.5 MG TABLET PO SCH (08:35)
[2019-11-19] MEDS: MULTIVIT W/MINERALS 1 TAB TABLET PO SCH (08:35)
[2019-11-19] MEDS: APIXABAN 5 MG TABLET PO SCH ×2 (08:36→16:57)
[2019-11-19 09:33] LABS: BASOPHILS % (AUTO) 0.2 % (0.0-2.0); EOSINOPHILS % (AUTO) 0.9 % (0.0-6.0); HEMATOCRIT 22 % (39-51); HEMOGLOBIN 7.3 g/dL (13.5-17.5); LYMPHOCYTES # (AUTO) 1.6 /CMM (0.8-4.8); LYMPHOCYTES % (AUTO) 17.7 % (20.0-44.0); MEAN CORPUSCULAR HGB CONC 33 g/dl (31.0-36.0); MEAN CORPUSCULAR VOLUME 91 fL (80-96); MONOCYTES % (AUTO) 10.7 % (2.0-12.0); NEUTROPHILS # (AUTO) 6.6 /CMM (1.8-8.9); NEUTROPHILS % (AUTO) 70.5 % (43.0-81.0); PLATELET COUNT (AUTO) 52 /CMM (150-450); RED BLOOD CELL COUNT(AUTO) 2.43 MIL/uL (4.5-6.0); WHITE BLOOD COUNT (AUTO) 9.3 K/uL (4.3-11.0)
[2019-11-19 09:45] LABS: CALCIUM, SERUM 8.6 mg/dL (8.5-10.1); CREATININE 1.1 mg/dL (0.6-1.3); MAGNESIUM 2.4 mg/dL (1.8-2.4); PHOSPHORUS 4.1 mg/dL (2.5-4.9)
--- NOTE | 2019-11-19 10:34 | NUR ---
MS RN NOTES POTASSIUM LEVEL 6.0. DR PEÑALOZA MADE AWARE, WITH ORDER FOR REPEAT BMP TO VERIFY. ORDER NOTED AND CARRIED OUT. LAB MADE AWARE AND WILL COME FOR RE-DRAW. WILL CONTINUE TO MONITOR
[2019-11-19] MEDS: SODIUM POLYSTYRENE SULFONATE 15 G/60 ML BOTTLE PO ONE ×2 (11:00→12:05)
--- NOTE | 2019-11-19 11:13 | NUR ---
MS RN NOTES PATIENT WITH ORAL SECRETIONS. ORAL SUCTION PROVIDED PRN. MAINTAINED ASPIRATION PRECAUTIONS. WILL CONTINUE TO MONITOR.
[2019-11-19 11:27] LABS: CALCIUM, SERUM 8.6 mg/dL (8.5-10.1); CREATININE 1.2 mg/dL (0.6-1.3); POTASSIUM 5.6 mmol/L (3.5-5.1)
[2019-11-19 11:57] LABS: EOSINOPHILS % (MANUAL) 1 % (0-4); LYMPHOCYTES % (MANUAL) 13 % (16-48); MONOCYTES % (MANUAL) 10 % (0-11.0); NEUTROPHILS % (MANUAL) 76 (42-76)
--- NOTE | 2019-11-19 13:15 | NUR ---
MS RN NOTES PATIENT MORE ALTERED THAN USUAL. AROUSABLE TO PAIN. NO ACUTE DISTRESS, NO FACIAL GRIMACE NTOED. O2 SAT 93%. NOTED WITH LOW BP (95/42), HR 45. RR 21. PLACED CALL TO DR MCCLELLAN AND MADE AWARE. WITH NEW ORDERS FOR NS 250cc IV BOLUS X 1 AND STAT CXR. ORDERS NOTED AND CARRIED OUT. WILL CONTINUE TO MONITOR
--- NOTE | 2019-11-19 13:16 | NUR ---
MS RN NOTES WITH NEW ORDERS FROM DR MCCLELLAN TO HOLD RISPERDONE AND GABAPENTIN TIL FURTHER ORDERS. NOTED AND CARRIED OUT. WILL CONTINUE TO MONITOR
--- NOTE | 2019-11-19 13:29 | NUR ---
MS RN NOTES UNABLE TO ADMINISTER KAYEXELATE D/T PATIENT'S CURRENT MENTAL STATUS. DR COLÓN AWARE, NO FURTHER ORDERS AT THIS TIME. WILL CONTINUE TO MONITOR
[2019-11-19] MEDS ORDERED: IV NS 0.9% 250 ML BAG IV ONE (13:30)
--- NOTE | 2019-11-19 13:36 | NUR ---
MS RN NOTES TITLE INSURANCE SALES REPRESENTATIVE AT BEDSIDE
--- NOTE | 2019-11-19 13:50 | NUR ---
MS RN NOTES DR MCCLELLAN MADE AWARE OF VS AND BP TREND. NO FURTHER ORDERS AT THIS TIME. WILL CONTINUE TO MONITOR
--- NOTE | 2019-11-19 15:28 | NUR ---
MS RN NOTES DR MCCLELLAN MADE AWARE OF CXR RESULT AND BP TREND. WITH ORDER TO TRANSFER TO ICU. ALSO PROVIDED DR MCCLELLAN WITH GUARANTOR INFORMATION/TEL NO. FOR REY MCGINNIS BUT NO ANSWER PER DR MCCLELLAN. PLACED CALL BUT NO ANSWER WELL. CHARGE NURSE AND NSG ANALYSIS REPORTING DEVELOPER MADE AWARE, AWAITING ICU BED
[2019-11-19] MEDS ORDERED: FEE PK DOSING 1 MIN EA MC ONE (15:54)
--- NOTE | 2019-11-19 15:55 | NUR ---
MS RN NOTES ICU 256-1
--- NOTE | 2019-11-19 15:58 | NUR ---
ICU/RN: TRANSFER NOTE RECEIVED PT FROM 3W, PT TRANSFERRED FOR LOW BP. PT LETHARGIC, UNABLE TO FOLLOW COMMANDS. ON NASAL CANULA, DESATURATING SWITCHED TO SIMPLE MASK, 8LITERS. SINUS CAROL ON TELE. GUARANTOR ATTEMPTED TO BE CONTACTED, NO ANSWER, VOICEMAIL LEFT BY RN AND . PER POLST PT IS DNR/DNI. LEFT UPPER ARM PIV PATENT AND INTACT. WILL INSERT NEW IV TILL PICC LINE IS PLACED. LEVOPHED ORDERED BY MD FOR HYPOTENSION. ALL NEEDS WILL BE ATTENDED TO, SAFETY MEASURES TAKEN, BED IN LOW POSITION, SIDE RAILS UP, CALL LIGHT WITHIN REACH.
--- NOTE | 2019-11-19 15:59 | NUR ---
MS RN NOTES PATIENT TRANSFERRED TO ICU VIA ACLS PROTOCOL. REPORT GIVEN TO JUDY STARK FOR KATE.
[2019-11-19] MEDS ORDERED: VANCOMYCIN 1 GM in IV D5W 250 ML IV ONE (16:00)
[2019-11-19] MEDS ORDERED: NOREPINEPHRINE 8 MG in IV D5W 500 ML IV PRN (16:30)
[2019-11-19] MEDS ORDERED: MEROPENEM 1 G in IV NS 0.9% 100 ML IV SCH (17:00)
[2019-11-19] MEDS: IV NS 0.9% 1,000 ML IV PRN (18:23)
--- NOTE | 2019-11-19 18:39 | NUR ---
ICU/RN: PTS CODE STATUS CHANGES TO COMFORT CARE, LEVOPHED TURNED OFF PER MD ORDERS.
--- NOTE | 2019-11-19 18:40 | NUR ---
ICU/RN: NU CRAWFORD AT BEDSIDE FOR CENTRAL LINE INSERTION. DR. CRAWFORD REVIEWED POLST AND CALLED IN REGARDS TO GOAL OF CARE FOR THE PT. PER DOCTORS AND ACCORDING TO THE POLST RECEIVED ORDERS TO STOP ALL MEDICATIONS AND START MORPHINE DRIP. MORPHINE IVP TILL DRIP ARRIVES. ALL OTHER ORDERS WILL BE STOPPED WELL. PT WILL BE PLACED ON 1LITER 02 VIA NASAL CANULA FOR COMFORT. PTS CODE STATUS WILL BE CHANGED TO COMFORT CARE.
[2019-11-19] MEDS ORDERED: MORPHINE SULFATE INJ 4 MG/ML DISP.SYRIN IV PRN (19:00)
[2019-11-19] MEDS ORDERED: LORAZEPAM INJ 2 MG/ML VIAL IV PRN (19:00)
--- NOTE | 2019-11-19 19:17 | NUR ---
ICU/RN: ENDING NOTES,AM BEDSIDE REPORT ENDORSED TO NIGHT NURSE FOR KATE. PER MD ALL ORDERS STOPPED, MORPHINE DRIP DELIVERED, AWAITING FOR TIMBER HARVESTER OPERATOR MACHINE TO START DRIP. MORPHINE IVP ADMINISTERED PER MD ORDER FOR COMFORT. PT ON NASAL CANULA, 1 LITER ORDERED. SINUS CAROL ON TELE. UNABLE TO GET IN CONTACT WITH GUARANTOR. ALL NEEDS WILL BE ATTENDED TO IN ORDER TO ACHIEVE COMFORT. BED IN LOW POSITION, SIDE RAILS UP. NIGHT RN WILL START MORPHINE DRIP.
--- NOTE | 2019-11-19 20:56 | NUR ---
ICU/BICYCLE TAXI DRIVER-REYCHESTER MCGINNIS AT [phone] WHO IS ON THE FACESHEET [place]LL POLST WAS NOTIFIED ABOUT THE PASSING OF THIS PT. REY IS THE PT'S STEP DAUGHTER, WHO ALSO HAD MORTUARY INFORMATION SUCH , THIS PT HAS [employer]. GAVE MAINFRAME PROGRAMMER NUMBER AND ADDRESS OF HOSPITAL. ALSO GAVE ICU PHONE NUMBER FOR ASSISTANCE TILL [phone] WHEN I LEAVE.
--- NOTE | 2019-11-19 21:22 | NUR ---
ICU/MANGLE PRESS CATCHER-RASHEL NAPIER [phone] DAUGHTER OF PT. GAVE NUMBER TO [facility]UA WRIGHT [phone] FEBRUARY IS THE PERSON TO SPEAK TO. SHE WAS CALLED ABOUT BODY PERSONAL LINES ACCOUNT MANAGER.
--- NOTE | 2019-11-19 21:31 | NUR ---
ICU/LIFE SKILLS CONSULTANT-DANIEL FROM [facility] CALLED BACK ASKED QUESTIONS ABOUT BODY THEN SAID THAT THEY WILL BE PICKING UP BODY WITHIN A FEW HOURS.
--- NOTE | 2019-11-19 21:47 | NUR ---
rn notes Patient was declared at 2045 by charge nurse. Informed admitting Diane at 2015, supervisor tree trimming at [address] John Evans at 2026. Got hold of the step daughter robby at 2099 and made aware. Called [facility] and spoke with La case ## [phone]. Patient has no belongings. Post mortem care done and remains placed on bag with tags attached. Brought the remains to the [facility] accompanied by security guards. Witnessed the remains put inside the freezer.
[2019-11-20] MEDS ORDERED: VANCOMYCIN 0.75 GM in IV D5W 250 ML IV SCH (04:00)
== END 2019-11-19 19:46 | disposition expired | DRG 640 ==
LOC: ER 10:28 → TELE 14:09 → MED 14:41 → ICU 11-19 15:57
PROVIDERS: ADMIT Internal Medicine; ATTEND Internal Medicine
PROC: 0JH Subcutaneous Tissue and Fascia, Insertion (ICD-10-PCS; principal; 2019-11-19)
PROC: 06HM33Z Insertion of Infusion Device into Right Femoral Vein, Percutaneous Approach (ICD-10-PCS; 2019-11-19)
PROC: B54BZZA Ultrasonography of Right Lower Extremity Veins, Guidance (ICD-10-PCS; 2019-11-19)
DX: E87.1 Hypo-osmolality and hyponatremia (principal); G92 Toxic encephalopathy; I13.0 Hypertensive heart and chronic kidney disease with heart failure and stage 1 through stage 4 chronic kidney disease, or unspecified chronic kidney disease; D61.818 Other pancytopenia; J98.11 Atelectasis; Z51.5 Encounter for palliative care; Z66 Do not resuscitate; N40.0 Benign prostatic hyperplasia without lower urinary tract symptoms; I48.91 Unspecified atrial fibrillation; I25.10 Atherosclerotic heart disease of native coronary artery without angina pectoris; G30.9 Alzheimer's disease, unspecified; F32.9 Major depressive disorder, single episode, unspecified; F02.80 Dementia in other diseases classified elsewhere, unspecified severity, without behavioral disturbance, psychotic disturbance, mood disturbance, and anxiety; E86.1 Hypovolemia; E78.5 Hyperlipidemia, unspecified; E16.2 Hypoglycemia, unspecified; E03.9 Hypothyroidism, unspecified; Z88.0 Allergy status to penicillin; Z88.2 Allergy status to sulfonamides; J44.9 Chronic obstructive pulmonary disease, unspecified; Z87.891 Personal history of nicotine dependence; Z86.73 Personal history of transient ischemic attack (TIA), and cerebral infarction without residual deficits; Z86.718 Personal history of other venous thrombosis and embolism; Z79.899 Other long term (current) drug therapy; G56.00 Carpal tunnel syndrome, unspecified upper limb; Z79.82 Long term (current) use of aspirin; I50.9 Heart failure, unspecified; Z79.51 Long term (current) use of inhaled steroids; D64.9 Anemia, unspecified; I87.8 Other specified disorders of veins; R23.4 Changes in skin texture; M62.50 Muscle wasting and atrophy, not elsewhere classified, unspecified site; T42.6X5A Adverse effect of other antiepileptic and sedative-hypnotic drugs, initial encounter; Y92.9 Unspecified place or not applicable; I44.0 Atrioventricular block, first degree; I45.10 Unspecified right bundle-branch block; N18.9 Chronic kidney disease, unspecified; Z79.01 Long term (current) use of anticoagulants; E87.5 Hyperkalemia
CPT/HCPCS: 36415; 70450-TC; 71045-TC; 80048-TC; 80061-TC; 80076-TC; 80164-TC; 81000-TC; 82140-TC; 82962-TC; 83605-TC; 83735-TC; 84100-TC; 84443-TC; 84484-TC; 85025-TC; 85730-TC; 87081-TC; 92521; 93307-TC; 94799-TC; A6253; C1751; G0378; G0480; J2060; J2185; J2270; J2274; J2405; J3370; J7030; J7050; J7060